=== PATIENT | male | born 1935 | race Caucasian/White ===

== ENCOUNTER → 2016-12-21 | Outpatient (CLI) | payer MEDICARE | LOC: GMAL 17:36 | PROVIDERS: ATTEND Family Medicine | DX: D51.3 Other dietary vitamin B12 deficiency anemia (principal); R53.83 Other fatigue ==

== ENCOUNTER → 2016-12-31 | Outpatient (CLI) | payer MEDICARE | END | disposition home or self-care (01) | LOC: GMAL 10:06 | PROVIDERS: ATTEND Family Medicine | DX: R53.83 Other fatigue (principal) ==

== ENCOUNTER 2017-07-04 07:52 | Emergency (ER) | payer MEDICARE ==
[2017-07-04] MEDS ORDERED: MORPHINE SULFATE INJ 10 MG/ML VIAL IV ONE ×2 (08:04→08:35)
[2017-07-04] MEDS ORDERED: ONDANSETRON INJ 4 MG/2 ML VIAL IV ONE (08:04)
--- NOTE | 2017-07-04 08:13 | ED.PDOC ---
History of Present Illness - General Chief Complaint: Post Op Problems Stated Complaint: surgery on tuesday, pain and falls Time Seen by Provider: 07/04/17 08:03 Source: patient, RN notes reviewed, Vital Signs reviewed, family, EMS Exam Limitations: no limitations - History of Present Illness Initial Comments: Patient comes in via EMS with c/o of R arm pain X 2 days. He had a fistula for dialysis placed 4 days ago. L arm from elbow to forearm is red, swollen and extremely tender. 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 Over the weekend he has had several falls w/o injury but people were grabbing his L arm to help him get up. + low grade fever, 99.5, and chills at home. Timing/Duration: getting worse - over the past 2 days Severity: severe Improving Factors: immobilization Worsening Factors: movement, other - touching Associated Symptoms: fever/chills Allergies/Adverse Reactions: Allergies Azithromycin Allergy (Verified 07/04/17 07:56) Cephalexin [From Keflex] Allergy (Verified 07/04/17 07:56) Ciprofloxacin [From Cipro] Allergy (Verified 07/04/17 07:56) Clarithromycin [From Biaxin] Allergy (Verified 07/04/17 07:56) Doxycycline [From Vibramycin] Allergy (Verified 07/04/17 07:56) Levofloxacin [From Levaquin] Allergy (Verified 07/04/17 07:56) Metronidazole [From Flagyl] Allergy (Verified 07/04/17 07:56) Pantoprazole [From Protonix] Allergy (Verified 07/04/17 07:56) Promethazine [From Phenergan] Allergy (Verified 07/04/17 07:56) Sulfamethoxazole w/Trimethoprim [From Bactrim] Allergy (Verified 07/04/17 07:56) Home Medications: Ambulatory Orders Ferrous Gluconate [Iron] 27 mg PO BID 09/06/14 Amiodarone HCl 200 mg PO DAILY 09/07/14 Simvastatin [Zocor] 40 mg PO BEDTIME 09/07/14 Aspirin [Aspirin Adult Low Dose] 81 mg PO QAM #60 tab 10/27/15 Omeprazole [Prilosec Cap] 20 mg PO ACBK #30 cap 10/27/15 Warfarin Sodium 1 mg PO 07/04/17 Warfarin Sodium 2 mg PO ZACHARY-OTH-DAY 07/04/17 Review of Systems - Review of Systems Constitutional: States: chills, fever EENTM: States: no symptoms reported Respiratory: States: no symptoms reported Cardiology: States: no symptoms reported Gastrointestinal/Abdominal: States: no symptoms reported Musculoskeletal: States: see HPI Skin: States: see HPI Neurological: States: see HPI. Denies: headache All other Systems: No Change from Baseline Past Medical History (General) - Patient Medical History Hx Seizures: No Hx Stroke: No Hx Dementia: No Hx Asthma: No Hx of COPD: No Hx Cardiac Disorders: Yes Hx Congestive Heart Failure: No Hx Pacemaker: No Hx Hypertension: Yes Hx Thyroid Disease: No Hx Diabetes: No Hx Gastroesophageal Reflux: No Hx Renal Disease: Yes Hx Cancer: No Hx of HIV: No Hx Hepatitis C: No Hx MRSA: No - Vaccination History Hx Tetanus, Diphtheria Vaccination: Yes Hx Influenza Vaccination: Yes Hx Pneumococcal Vaccination: Yes Immunizations Up to Date: Yes - Social History Hx Tobacco Use: No Hx Chewing Tobacco Use: No Hx Alcohol Use: No Hx Substance Use: No Hx Substance Use Treatment: No Hx Depression: No Feels Threatened In Home Enviroment: No Feels Threatened In a Relationship: No Hx Physical Abuse: No Hx Emotional Abuse: No Hx Suspected Abuse: No - Activities of Daily Living Hospice Agency (if applicable):: None - Female History Patient is a Female of Child Bearing Age (10 -59 yrs old): No Patient : No Family Medical History - Family History Father Name: Christopher Yang Age (years): 80 Living Status: Age at (years of age): 80 Cause of : Bladder cancer. Hx Family Cancer: Yes - bladder cancer Mother Family History: No Known Name: Dennis Yang Age (years): 88 Living Status: Age at (years of age): 88 Cause of : House fire Hx Family Asthma: No Hx Family Congestive Heart Failure: No Hx Family Hypertension: No Hx Family Stroke: No Hx Cardiac Disease: No Hx Family Diabetes: No Hx Family Cancer: Yes Physical Exam - Physical Exam General Appearance: Alert, Comfortable, No apparent distress, Well Developed, Well Groomed, Well Hydrated, Well Nourished Neck: full range of motion, supple, normal inspection Respiratory: chest non-tender, lungs clear, normal breath sounds, no respiratory distress, no accessory muscle use Cardiovascular/Chest: normal peripheral pulses, regular rate, rhythm, no gallop , no murmur Peripheral Pulses: radial,left: 1+ Extremity: inflammation, slow capillary refill, swelling, other - L arm: Volar aspect from elbow to wrist is erythematou, swollen, tender, warm with bruising from elbow to mid bicep. Can't move arm but moves all fingers and sensation is intact and equal in all. Neurologic: alert, normal mood/affect, oriented x 3 Skin Exam: normal color - except as noted above, warm/dry Lymphatic: no adenopathy - No adenopathy L axilla Progress - Progress Progress: 07/04/17 08:51 Resting comfortably after sonogram and Morphine 10mg IV. Awaiting call back from Dr. Tony Plunkett - surgeon who placed his graft on Tuesday. 07/04/17 09:[address] Griffith, surgeon, who would like patient transferred to [facility]. - Results/Orders Results/Orders: Laboratory Tests 07/04/17 07/04/17 08:20 08:20 WBC 16.7 H RBC 3.91 L Hgb 11.7 L Hct 35.9 L MCV 91.6 MCH 29.9 MCHC 32.7 L RDW 13.0 Plt Count 232 MPV 6.9 L Absolute Neuts (auto) 13.90 H Absolute Lymphs (auto) 1.10 Absolute Monos (auto) 1.50 H Absolute Eos (auto) 0.10 Absolute Basos (auto) 0.10 Neutrophils % 83.2 H Lymphocytes % 6.9 L Monocytes % 8.9 Eosinophils % 0.4 L Basophils % 0.6 Sodium 138 Potassium 4.7 Chloride 106 Carbon Dioxide 17 L Anion Gap 19.7 H BUN 43 H Creatinine 3.76 H BUN/Creatinine Ratio 11.4 Random Glucose 77 Serum Osmolality 285.3 Calcium 8.5 Total Bilirubin 0.9 AST 74 H ALT 17 Alkaline Phosphatase 79 Serum Total Protein 7.4 Albumin 3.3 Globulin 4.1 H Albumin/Globulin Ratio 0.8 L - EKG/XRAY/CT Comments: RUE Doppler: negative for DVT Departure - Departure Clinical Impression: Cellulitis of forearm, left Post-operative infection Qualifiers: Encounter type: initial encounter Qualified Code(s): T81.4XXA - Infection following a procedure, initial encounter Time of Disposition: 09:45 Disposition: Transfer to Hospital Condition: Good Departure Forms: ED Discharge - Pt. Copy, Patient Portal Self Enrollment Referrals: Wesly Wells III, MD [Primary Care Provider] - 1-2 Weeks Home Medications: Ambulatory Orders Ferrous Gluconate [Iron] 27 mg PO BID 09/06/14 Amiodarone HCl 200 mg PO DAILY 09/07/14 Simvastatin [Zocor] 40 mg PO BEDTIME 09/07/14 Aspirin [Aspirin Adult Low Dose] 81 mg PO QAM #60 tab 10/27/15 Omeprazole [Prilosec Cap] 20 mg PO ACBK #30 cap 10/27/15 Warfarin Sodium 1 mg PO 07/04/17 Warfarin Sodium 2 mg PO ZACHARY-OTH-DAY 07/04/17 Transfer to Outside Facility - Transfer Information Accepting Provider:: Dr Dunne Accepting Facility: [facility] Reason for Transfer: specialized care not available - Spoke with Surgeon - Dr Griffith who is covering for Dr. Plunkett who wants patient transferred
[2017-07-04 08:57] VITALS: BP 104/49
--- NOTE | 2017-07-04 09:15 | US ---
EXAM DESCRIPTION: Venous,Upper Extremity LT CLINICAL HISTORY: RUE swelling/pain/erythema s/p fistula placement COMPARISON: None Available. TECHNIQUE: Left upper extremity venous duplex FINDINGS: There is no DVT identified. There is normal color flow observed with good flow augmentation. All deep veins compress normally. IMPRESSION: Negative for DVT Electronically signed by: Chidi Calderón MD 07/04/2017 9:14 AM CDT
[2017-07-04 09:51] VITALS: TEMP 99; O2SAT 96
== END 2017-07-04 10:18 | disposition short-term general hospital (02) ==
LOC: ER 07:52
DX: T82.7XXA Infection and inflammatory reaction due to other cardiac and vascular devices, implants and grafts, initial encounter (principal); L03.114 Cellulitis of left upper limb; Z91.81 History of falling; I10 Essential (primary) hypertension; N28.9 Disorder of kidney and ureter, unspecified; Z88.3 Allergy status to other anti-infective agents; Z88.8 Allergy status to other drugs, medicaments and biological substances
CPT/HCPCS: 36415; 80053; 85025; 87040; 93971; J2270; J2405

== ENCOUNTER → 2017-08-23 | Outpatient (CLI) | payer MEDICARE | END | disposition home or self-care (01) | LOC: BFHH 13:05 | PROVIDERS: ATTEND Family Medicine | DX: I13.2 Hypertensive heart and chronic kidney disease with heart failure and with stage 5 chronic kidney disease, or end stage renal disease (principal); I50.9 Heart failure, unspecified; N18.5 Chronic kidney disease, stage 5; D64.9 Anemia, unspecified; Z79.01 Long term (current) use of anticoagulants; I48.0 Paroxysmal atrial fibrillation; E03.9 Hypothyroidism, unspecified ==

== ENCOUNTER → 2017-10-04 | Outpatient (CLI) | payer MEDICARE | END | disposition home or self-care (01) | LOC: BFHH 08:59 | PROVIDERS: ATTEND Family Medicine | DX: E03.9 Hypothyroidism, unspecified (principal) ==

== ENCOUNTER 2017-11-14 19:21 | Emergency (ER) | payer MEDICARE ==
--- NOTE | 2017-11-14 20:49 | ED.PDOC ---
History of Present Illness - General Chief Complaint: General Stated Complaint: cough, congestion, not eating or drinking x 4 days Time Seen by Provider: 11/14/17 20:39 Source: patient, EMS notes reviewed - History of Present Illness Initial Comments: SOB, NON PRODUCTIVE COUGH, VOMITING, WEAKNESS, MALAISE X ONE WEEK. HX OF CHRONIC KIDNEY INJURY. Timing/Duration: 1 week Severity: moderate Improving Factors: nothing Worsening Factors: nothing Associated Symptoms: cough, malaise Allergies/Adverse Reactions: Allergies Amiodarone Allergy (Verified 11/14/17 19:55) Azithromycin Allergy (Verified 11/14/17 19:55) Cephalexin [From Keflex] Allergy (Verified 11/14/17 19:55) Ciprofloxacin [From Cipro] Allergy (Verified 11/14/17 19:55) Clarithromycin [From Biaxin] Allergy (Verified 11/14/17 19:55) Doxycycline [From Vibramycin] Allergy (Verified 11/14/17 19:55) Levofloxacin [From Levaquin] Allergy (Verified 11/14/17 19:55) Metronidazole [From Flagyl] Allergy (Verified 11/14/17 19:55) Omeprazole [From Prilosec] Allergy (Verified 11/14/17 19:55) Pantoprazole [From Protonix] Allergy (Verified 11/14/17 19:55) Promethazine [From Phenergan] Allergy (Verified 07/04/17 07:56) Sulfamethoxazole w/Trimethoprim [From Bactrim] Allergy (Verified 07/04/17 07:56) Home Medications: Ambulatory Orders Ferrous Gluconate [Iron] 27 mg PO BID 09/06/14 Amiodarone HCl 200 mg PO DAILY 09/07/14 Simvastatin [Zocor] 40 mg PO BEDTIME 09/07/14 Aspirin [Aspirin Adult Low Dose] 81 mg PO QAM #60 tab 10/27/15 Omeprazole [Prilosec Cap] 20 mg PO ACBK #30 cap 10/27/15 Warfarin Sodium 1 mg PO 07/04/17 Warfarin Sodium 2 mg PO ZACHARY-OTH-DAY 07/04/17 Amoxicillin & Pot Clavulanate [Augmentin Tab] 875 mg PO BID #20 tab 11/14/17 Review of Systems - Review of Systems Constitutional: States: weakness EENTM: States: no symptoms reported Respiratory: States: cough Cardiology: States: no symptoms reported Gastrointestinal/Abdominal: States: nausea Genitourinary: States: no symptoms reported Musculoskeletal: States: muscle pain Skin: States: no symptoms reported Neurological: States: no symptoms reported Endocrine: States: no symptoms reported Hematologic/Lymphatic: States: no symptoms reported All other Systems: Reviewed and Negative Past Medical History (General) - Patient Medical History Hx Seizures: No Hx Stroke: No Hx Dementia: No Hx Asthma: No Hx of COPD: No Hx Cardiac Disorders: Yes - A-Fib Hx Congestive Heart Failure: No Hx Pacemaker: No Hx Hypertension: No Hx Thyroid Disease: Yes Hx Diabetes: No Hx Gastroesophageal Reflux: Yes Hx Renal Disease: Yes - Kidney failure Hx Cancer: Yes - Prostate Hx of HIV: No Hx Hepatitis C: No Hx MRSA: No Surgical History: other - Vaccination History Hx Tetanus, Diphtheria Vaccination: No Hx Influenza Vaccination: Yes Hx Pneumococcal Vaccination: Yes - Social History Hx Tobacco Use: No Hx Chewing Tobacco Use: No Hx Alcohol Use: No Hx Substance Use: No Hx Substance Use Treatment: No Hx Depression: No Hx Physical Abuse: No Hx Emotional Abuse: No Hx Suspected Abuse: No - Female History Patient : No Family Medical History - Family History Father Name: Christopher Yang Age (years): 80 Living Status: Age at (years of age): 80 Cause of : Bladder cancer. Hx Family Cancer: Yes - bladder cancer Mother Family History: No Known Name: Dennis Yang Age (years): 88 Living Status: Age at (years of age): 88 Cause of : House fire Hx Family Asthma: No Hx Family Congestive Heart Failure: No Hx Family Hypertension: No Hx Family Stroke: No Hx Cardiac Disease: No Hx Family Diabetes: No Hx Family Cancer: Yes Physical Exam - Physical Exam General Appearance: Alert, Anxious, No apparent distress Eye Exam: bilateral normal Ears, Nose, Throat: hearing grossly normal, normal ENT inspection, normal pharynx Neck: full range of motion, supple, normal inspection Respiratory: chest non-tender, lungs clear, normal breath sounds, no respiratory distress, no accessory muscle use Cardiovascular/Chest: normal peripheral pulses, regular rate, rhythm, no edema, no gallop, no JVD, no murmur Peripheral Pulses: radial,right: 2+, radial,left: 2+ Gastrointestinal/Abdominal: non tender, soft, no organomegaly, no pulsatile mass Rectal Exam: deferred Extremity: normal range of motion, non-tender, normal inspection Neurologic: oriented x 3 Skin Exam: normal color, warm/dry Lymphatic: no adenopathy Progress - Progress Progress: 11/14/17 23:05 LABORATORY IS REPORTED: CBC: WBC OF 7.6, 69% NEUTROPHILS, CMP: CREAT OF 3.4, BUN 51AST OF 386, ALT OF 24. CXR IS NEGATIVE FOR ACUTE PROCESS, INFLUENZA SCREEN NEGATIVE. Departure - Departure Clinical Impression: Hyperkalemia, diminished renal excretion Acute bronchitis Qualifiers: Bronchitis organism: other organism Qualified Code(s): J20.8 - Acute bronchitis due to other specified organisms Renal failure Qualifiers: Renal failure chronicity: chronic Chronic kidney disease stage: stage 3 ( moderate) Qualified Code(s): N18.3 - Chronic kidney disease, stage 3 (moderate) Time of Disposition: 23:10 Disposition: Discharge to Home or Self Care Condition: Fair Departure Forms: ED Discharge - Pt. Copy, Patient Portal Self Enrollment Diet: resume usual diet Activity: increase activity as tolerated Referrals: Wesly Wells III, MD [Primary Care Provider] - 1-2 Weeks Prescriptions: Amoxicillin & Pot Clavulanate [Augmentin Tab] 875 mg PO BID #20 tab Home Medications: Ambulatory Orders Ferrous Gluconate [Iron] 27 mg PO BID 09/06/14 Amiodarone HCl 200 mg PO DAILY 09/07/14 Simvastatin [Zocor] 40 mg PO BEDTIME 09/07/14 Aspirin [Aspirin Adult Low Dose] 81 mg PO QAM #60 tab 10/27/15 Omeprazole [Prilosec Cap] 20 mg PO ACBK #30 cap 10/27/15 Warfarin Sodium 1 mg PO 07/04/17 Warfarin Sodium 2 mg PO ZACHARY-OTH-DAY 07/04/17 Amoxicillin & Pot Clavulanate [Augmentin Tab] 875 mg PO BID #20 tab 11/14/17
--- NOTE | 2017-11-14 21:44 | RAD ---
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 No pneumothorax or pleural effusion. Aortic atherosclerosis. Normal cardiac silhouette. Impression: No focal airspace disease. Electronically signed by: Gibson Castillo MD 11/14/2017 9:43 PM SOLE CONFORMING MACHINE OPERATOR
[2017-11-14] MEDS ORDERED: SODIUM CHLORIDE 0.9% 500ML 500 ML IVS ONE (21:58)
[2017-11-14] MEDS ORDERED: AMOXICILLIN & POT CLAVULANATE 875 MG TAB PO ONE (23:07)
[2017-11-14] MEDS ORDERED: SOD POLYSTYRENE SULFONATE 15 GM/60 ML BTTL PO ONE (23:07)
[2017-11-14 23:53] VITALS: BP 158/67; TEMP 97.3; O2SAT 91
== END 2017-11-14 23:53 | disposition home or self-care (01) ==
LOC: ER 19:21
DX: J20.8 Acute bronchitis due to other specified organisms (principal); N18.3 Chronic kidney disease, stage 3 (moderate); I48.91 Unspecified atrial fibrillation; E87.5 Hyperkalemia; E07.9 Disorder of thyroid, unspecified; Z85.46 Personal history of malignant neoplasm of prostate; Z79.01 Long term (current) use of anticoagulants; Z79.82 Long term (current) use of aspirin
CPT/HCPCS: 36415; 71010; 80053; 81001; 85025; 87502; J7040

== ENCOUNTER → 2017-11-23 | Outpatient (CLI) | payer MEDICARE ==
--- NOTE | 2017-11-24 22:21 | CT ---
EXAM DESCRIPTION: Abdomen/Pelvis w/o Contrast: Computed tomography. CLINICAL HISTORY: CHRONIC KIDNEY DISEASE COMPARISON: None. TECHNIQUE: Spiral-axial scans at 5.0 mm intervals through the abdomen and pelvis. Coronal and sagittal 2.0mm reconstructions. No IV or oral contrast. Total Exam DLP: 5.9, 0.28 mGy-cm. This exam was performed according to our departmental CT dose-optimization program which includes automated exposure control, adjustment of the mA and/or kV according to patient size and/or use of iterative reconstruction technique; to reduce radiation dose to as low as reasonably achievable (ALARA). FINDINGS: Kidneys and Ureters: Long axis of the right kidney is 7.2 cm. Long axis of the left kidney is 9.5 cm. Bilateral cortical thinning. Multiple large well-defined rounded and oval masses on both kidneys with thin pappas and Hounsfield density less than +15 Hounsfield units. The cysts do not contain calcifications. No renal calcification or radiodense renal or ureteral stones. No hydronephrosis bilaterally or perinephric fluid. No periureteral edema. Pelvic Organs: Mass effect on the urinary bladder by rectum distended by gas. No radiodense stones in the bladder. Surgical clips in the pelvis. Prostate is not well seen with surgical clips in the region of the prostate. No fluid in the anterior peritoneal reflection and no pelvic mass. Lung and pleura bases: Atelectasis in the bilateral bases more right than left. Minimal pleural thickening. Bilateral pleural effusions seen on the prior study have resolved. Liver, spleen, stomach, and adrenal glands: Unremarkable. Pancreas, Gallbladder, Ducts: Gallbladder visualized. Surgical clips in the epigastrium and gastroesophageal region. Aorta: Moderate atherosclerotic calcification more distally with areas of ectasia below the renal arteries. Small Bowel: Normal caliber with fluid and minimal gas. Terminal Ileum/Cecum: Normal caliber of the TI. Cecum unremarkable. Appendix not seen. . Colon: Normal density of the surrounding fat. Diverticula descending and transverse descending and sigmoid:. No surrounding fatty stranding and no mucosal thickening. Minimal redundancy of the sigmoid colon Mesentery: No free air or free fluid. No stranding or fascial thickening. Spine and Bony Pelvis: Multiple levels of spondylosis involving the entire lumbar spine in the included segments of the thoracic spine. Thoracolumbar levoscoliosis. Marked bilateral hip arthrosis more left than right with minimal worsening since the prior study. Abdominal Wall/Back Soft Tissues: Fatty inguinal hernia on the left not containing bowel. IMPRESSION: 1. Bilateral kidneys show cortical thinning with the right kidney smaller than the left. Multiple cysts bilaterally. No calcification in the cyst renal parenchyma and no radiodense stones in the kidneys or ureters bilaterally. Stable since the prior study. 2. Partial versus complete removal of the prostate gland stable since the prior study. Surgery to the gastroesophageal region also seen on the prior study. 3. Resolution of bilateral pleural effusions since the prior study. Minimal atelectasis right base more than left. 4. Diverticulosis again involving most of the colon with no evidence of complications. Stable small left inguinal hernia not containing bowel. 5. No pelvic or abdominal mass free fluid or free air.. Electronically signed by: Pedro Mcghee MD 11/24/2017 10:20 PM [facility]
== END | disposition home or self-care (01) ==
LOC: LAB.O 11:08
PROVIDERS: ATTEND Internal Medicine Nephrology
DX: N18.4 Chronic kidney disease, stage 4 (severe) (principal)

== ENCOUNTER → 2017-11-25 | Outpatient (CLI) | payer MEDICARE | END | disposition home or self-care (01) | LOC: LAB.O 11:18 | PROVIDERS: ATTEND Internal Medicine Nephrology | DX: N18.4 Chronic kidney disease, stage 4 (severe) (principal) ==

== ENCOUNTER → 2017-12-05 | Outpatient (CLI) | payer MEDICARE | END | disposition home or self-care (01) | LOC: BFHH 15:17 | PROVIDERS: ATTEND Family Medicine | DX: R30.0 Dysuria (principal) ==

== ENCOUNTER 2017-12-30 12:07 | Observation (INO) | payer MEDICARE ==
[2017-12-30] MEDS ORDERED: ONDANSETRON INJ 4 MG/2 ML VIAL IV ONE (13:01)
[2017-12-30] MEDS ORDERED: SODIUM CHLORIDE 0.9% 1000ML 1,000 ML IVS ONE (13:01)
--- NOTE | 2017-12-30 13:04 | ED.PDOC ---
History of Present Illness - General Chief Complaint: General Stated Complaint: Weakness, poor intake Time Seen by Provider: 12/30/17 12:54 Source: patient, family - History of Present Illness Initial Comments: VOMITING FOR 10 DAYS INTERMITTENTLY AND A NON PRODUCTIVE COUGH. THE PATIENT HAS A SUBJECTIVE FEVER AND MALAISE. HE WAS IN THE ED LAST MONTH WITH SIMILAR PROBLEMS. Timing/Duration: 1 week, getting worse Severity: moderate Improving Factors: nothing Worsening Factors: nothing Associated Symptoms: cough, fever/chills, weakness Allergies/Adverse Reactions: Allergies Amiodarone Allergy (Verified 11/14/17 19:55) Azithromycin Allergy (Verified 11/14/17 19:55) Cephalexin [From Keflex] Allergy (Verified 11/14/17 19:55) Ciprofloxacin [From Cipro] Allergy (Verified 11/14/17 19:55) Clarithromycin [From Biaxin] Allergy (Verified 11/14/17 19:55) Doxycycline [From Vibramycin] Allergy (Verified 11/14/17 19:55) Levofloxacin [From Levaquin] Allergy (Verified 11/14/17 19:55) Metronidazole [From Flagyl] Allergy (Verified 11/14/17 19:55) Omeprazole [From Prilosec] Allergy (Verified 11/14/17 19:55) Pantoprazole [From Protonix] Allergy (Verified 11/14/17 19:55) Promethazine [From Phenergan] Allergy (Verified 07/04/17 07:56) Sulfamethoxazole w/Trimethoprim [From Bactrim] Allergy (Verified 07/04/17 07:56) Home Medications: Ambulatory Orders Ferrous Gluconate [Iron] 27 mg PO BID 09/06/14 Amiodarone HCl 200 mg PO DAILY 09/07/14 Simvastatin [Zocor] 40 mg PO BEDTIME 09/07/14 Aspirin [Aspirin Adult Low Dose] 81 mg PO QAM #60 tab 10/27/15 Omeprazole [Prilosec Cap] 20 mg PO ACBK #30 cap 10/27/15 Warfarin Sodium 1 mg PO 07/04/17 Warfarin Sodium 2 mg PO ZACHARY-OTH-DAY 07/04/17 Amoxicillin & Pot Clavulanate [Augmentin Tab] 875 mg PO BID #20 tab 11/14/17 Review of Systems - Review of Systems Constitutional: States: fever EENTM: States: no symptoms reported Respiratory: States: cough Cardiology: States: no symptoms reported Gastrointestinal/Abdominal: States: nausea, vomiting Genitourinary: States: no symptoms reported Musculoskeletal: States: no symptoms reported Skin: States: no symptoms reported Neurological: States: no symptoms reported Endocrine: States: no symptoms reported Hematologic/Lymphatic: States: no symptoms reported Past Medical History (General) - Patient Medical History Hx Seizures: No Hx Stroke: No Hx Dementia: No Hx Asthma: No Hx of COPD: No Hx Cardiac Disorders: Yes - A-Fib Hx Congestive Heart Failure: No Hx Pacemaker: No Hx Hypertension: No Hx Thyroid Disease: Yes Hx Diabetes: No Hx Gastroesophageal Reflux: Yes - Hx peptic ulcer Hx Renal Disease: Yes - Kidney failure Hx Cancer: Yes - Prostate Hx of HIV: No Hx Hepatitis C: No Hx MRSA: No Surgical History: other - Vaccination History Hx Tetanus, Diphtheria Vaccination: No Hx Influenza Vaccination: Yes - 2016 Hx Pneumococcal Vaccination: Yes - Social History Hx Tobacco Use: Yes - Quit around 1965 Hx Chewing Tobacco Use: No Hx Alcohol Use: No Hx Substance Use: No Hx Substance Use Treatment: No Hx Depression: No Hx Physical Abuse: No Hx Emotional Abuse: No Hx Suspected Abuse: No - Female History Patient : No Family Medical History - Family History Father Name: Christopher Yang Age (years): 80 Living Status: Age at (years of age): 80 Cause of : Bladder cancer. Hx Family Cancer: Yes - bladder cancer Mother Family History: No Known Name: Dennis Yang Age (years): 88 Living Status: Age at (years of age): 88 Cause of : House fire Hx Family Asthma: No Hx Family Congestive Heart Failure: No Hx Family Hypertension: No Hx Family Stroke: No Hx Cardiac Disease: No Hx Family Diabetes: No Hx Family Cancer: Yes Physical Exam - Physical Exam General Appearance: Alert, No apparent distress Eye Exam: bilateral normal Ears, Nose, Throat: hearing grossly normal, other - ORAL MUCOSA IS DRY Neck: non-tender, full range of motion Respiratory: chest non-tender, lungs clear, normal breath sounds, no respiratory distress, no accessory muscle use Cardiovascular/Chest: normal peripheral pulses, regular rate, rhythm, no edema, no gallop, no JVD, no murmur Peripheral Pulses: radial,right: 2+, radial,left: 2+ Gastrointestinal/Abdominal: normal bowel sounds, non tender, soft, no organomegaly, no pulsatile mass Rectal Exam: deferred Back Exam: normal inspection Extremity: normal range of motion, non-tender, normal inspection Neurologic: alert, oriented x 3 Skin Exam: normal color Progress - Results/Orders Results/Orders: LAB IS REPORTED WBC IS NORMAL, HB OF 11.6, INR OF 1.7, CREATININE OF 2.98/51. CXR NO ACUTE PROCESS. CASE DISCUSSED WITH HOSPITALIST Departure - Departure Clinical Impression: [id number] kidney injury Qualifiers: Acute renal failure type: unspecified Chronic kidney disease stage: stage 2 ( mild) Qualified Code(s): N17.9 - Acute kidney failure, unspecified; N18.2 - Chronic kidney disease, stage 2 (mild) Time of Disposition: 16:22 Disposition: Admit Patient Departure Forms: ED Discharge - Pt. Copy, Patient Portal Self Enrollment Referrals: Wesly Wells III, MD [Primary Care Provider] - 1-2 Weeks Home Medications: Ambulatory Orders Ferrous Gluconate [Iron] 27 mg PO BID 09/06/14 Amiodarone HCl 200 mg PO DAILY 09/07/14 Simvastatin [Zocor] 40 mg PO BEDTIME 09/07/14 Aspirin [Aspirin Adult Low Dose] 81 mg PO QAM #60 tab 10/27/15 Omeprazole [Prilosec Cap] 20 mg PO ACBK #30 cap 10/27/15 Warfarin Sodium 1 mg PO 07/04/17 Warfarin Sodium 2 mg PO ZACHARY-OTH-DAY 07/04/17 Amoxicillin & Pot Clavulanate [Augmentin Tab] 875 mg PO BID #20 tab 11/14/17 Decision To Admit - Decistion To Admit Decision to Admit Reason: Admit from ER Decision to Admit Date: 12/30/17 Decision to Admit Time: 16:21
--- NOTE | 2017-12-30 13:33 | RAD ---
EXAM DESCRIPTION: Chest,1 View CLINICAL HISTORY: Fever and shortness of breath COMPARISON: November 14, 2017 Findings: Single portable frontal view of the chest. Cardiac silhouette and pulmonary vascularity are within normal limits. Mild calcific atherosclerosis and tortuosity of the thoracic aorta. Lungs are clear without focal consolidative infiltrates. Costophrenic angles are sharp. No pneumothorax. Surgical clips over the mid upper abdomen. IMPRESSION: No radiographic evidence for acute cardiopulmonary process. Electronically signed by: Wesly Page MD 12/30/2017 1:32 PM PROFESSIONAL ARCHITECT
--- NOTE | 2017-12-30 17:29 | HP ---
SUPERVISING PHYSICIAN: Gibson Kemp M.D. CHIEF COMPLAINT: Weakness, nausea and vomiting. HISTORY OF PRESENT ILLNESS: This is an 82 year-old male patient who came to the Emergency Room today due to nausea with intermittent vomiting for 10 days. He was seen in his primary care physician, Dr. Wesly Wells' office yesterday for acute bronchitis and was given Amoxicillin. He has chronic nausea and vomiting due to gastroesophageal reflux disease and his renal failure, but his vomiting has been worse over the last 10 days. He has also had fatigue but no fever. In the Emergency Room, his WBCs were normal at 6.2 with hemoglobin 11.6 and hematocrit 35.5. He is on Coumadin for atrial fibrillation and his INR was subtherapeutic today at 1.76. Sodium 139, potassium 4.9, chloride 114, carbon dioxide 15, BUN 51, creatinine 2.98. His baseline creatinine is about 3. Calcium 8.2. AST 177, ALT 156, alkaline phosphatase 74, serum total protein 6.5 , albumin 2.9. Urinalysis was basically within normal limits. Chest x-ray was done and per radiology interpretation shows no radiographic evidence of acute cardiopulmonary processes. He was given some Zofran and 1 liter of fluid in the Emergency Room and I was called for admission. PAST MEDICAL HISTORY: 1. Atrial fibrillation. 2. Chronic kidney disease stage 4. 3. Diverticulitis. 4. Gastroesophageal reflux disease. 5. Osteoarthritis. 6. Iron deficiency anemia. 7. Chronic nausea from renal failure. PAST SURGICAL HISTORY: 1. Appendectomy. 2. Hernia repair times 2. 3. Prostatectomy. 4. Throat surgery. 5. Left femur surgery. 6. Hemodialysis shunt to the left arm. HOME MEDICATIONS: Per the EMR and awaiting verification. ALLERGIES: AZITHROMYCIN, BIAXIN, CEPHALOSPORINS, CIPRO, FLAGYL, PRILOSEC, PROTONIX, SULFA, VIBRAMYCIN, TRICOR. SOCIAL HISTORY: He is retired. He lives at [place]. He is . He has 2 children. He has a previous history of cigarette smoking but he quit in 1985. There is no history of ETOH or illicit drug use. REVIEW OF SYSTEMS: Positive for fatigue. Negative for weight changes or fever. RESPIRATORY: Positive for cough. Negative for dyspnea or wheezing. CARDIOVASCULAR: Negative for chest pain, palpitations or tachycardia. MUSCULOSKELETAL: Positive for left arm pain that is chronic in nature. Negative for arthralgias or myalgias. GASTROINTESTINAL: As per History of Present Illness. GENITOURINARY: Negative for dysuria, hematuria or polyuria. SKIN: Negative for rashes or lesions. NEUROLOGIC: Negative for seizures, headaches or dizziness. PHYSICAL EXAMINATION: VITAL SIGNS: He is afebrile, heart rate 104, blood pressure 119/71, respiratory rate 20, O2 sat is 97% on room air. GENERAL: This is an 82 year-old male patient who is sitting in his hospital bed. He is eating his supper. He is in no acute distress. HEENT: Normocephalic and atraumatic. Pupils are equal and reactive. Oropharynx is clear. Oral mucous membranes are dry. NECK: Supple without mass. RESPIRATORY: Essentially clear to auscultation bilaterally, although he does have a few scattered rhonchi in the apices. CHEST: There is equal rise and fall of the chest with inspiration and expiration. CARDIOVASCULAR: Regular rate and rhythm. GASTROINTESTINAL: Abdomen is soft, nondistended, non-tender. Bowel sounds are positive. EXTREMITIES: Trace of pedal edema bilaterally. No cyanosis or clubbing. NEUROLOGIC: He is awake, alert and oriented times three. LABORATORY: Labs and films are as per the History of Present Illness. ASSESSMENT: 1. Dehydration with nausea and vomiting. He does have chronic signs due to his renal failure, but may be exacerbated due to his recent poor intake as well as his recent upper respiratory infection. 2. Acute bronchitis, seen yesterday by his primary care physician, Dr. Wells, on Amoxicillin. 3. Chronic renal failure with a baseline creatinine of [address] Lopes. 4. History of atrial fibrillation on Coumadin and Amiodarone with a subtherapeutic INR. He did not take his Coumadin today due to his nausea. 5. Gastroesophageal reflux disease. PLAN: We will place the patient in Observation. I spoke with both Dr. Wells and Dr. Lopes about his renal issues. He has not been on dialysis as yet but Dr. Lopes would like him to have some bicarbonate in his IV fluids. I will give those gently overnight. I have restarted his Amoxicillin as well as his home medications. I have also given him an extra dose of Coumadin tonight and will recheck his INR in the morning as well as his additional lab. I have also ordered bronchial hygiene and Mucinex. We will monitor the patient closely and follow as needed. Dr. Kemp is the collaborating physician available for consultation. #[id number] [facility]
[2017-12-30] MEDS ORDERED: IV SET AND CAP CHANGE INJ INJ SCH (19:00)
[2017-12-30] MEDS ORDERED: SODIUM CHLORIDE 0.9% (FLUSH) 10 ML SYG IV PRN (19:00)
[2017-12-30] MEDS ORDERED: SODIUM BICARBONATE SYRINGE 75 MEQ in DEXTROSE 5% 1000ML 1,000 ML IV PRN (19:08)
[2017-12-30] MEDS ORDERED: WARFARIN SODIUM 2 MG TAB PO ONE (19:12)
[2017-12-30] MEDS ORDERED: CALCITRIOL 0.25 MCG CAP PO SCH (19:30)
[2017-12-30] MEDS ORDERED: WARFARIN SODIUM 2 MG TAB PO SCH (19:30)
[2017-12-30] MEDS ORDERED: DEXTROSE 5% 1000ML 1,000 ML IVS ONE (20:02)
[2017-12-30] MEDS ORDERED: SODIUM BICARBONATE VIAL 50 MEQ/50 ML VIAL ONE (20:03)
[2017-12-30] MEDS: guaiFENesin ER TAB 600 MG TAB PO SCH (20:12)
[2017-12-30] MEDS: AMOXICILLIN 500 MG CAP PO SCH (21:30)
[2017-12-31] MEDS: AMOXICILLIN 500 MG CAP PO SCH ×3 (06:08→21:43)
[2017-12-31] MEDS ORDERED: SODIUM BICARBONATE VIAL 75 MEQ in DEXTROSE 5% 1000ML 1,000 ML IV PRN ×2 (08:00→09:37)
[2017-12-31] MEDS: guaiFENesin ER TAB 600 MG TAB PO SCH ×2 (08:06→20:41)
[2017-12-31] MEDS: FAMOTIDINE 20 MG TAB PO SCH (08:06)
[2017-12-31] MEDS: AMIODARONE HCL 200 MG TAB PO SCH (08:06)
[2017-12-31] MEDS: SIMVASTATIN 20 MG TAB PO SCH (08:07)
[2017-12-31] MEDS ORDERED: LIOTHYRONINE SODIUM 25 MCG PO SCH (09:00)
[2017-12-31] MEDS ORDERED: WARFARIN SODIUM 1 MG TAB PO SCH (12:00)
[2017-12-31] MEDS ORDERED: DEXTROSE 5% 1000ML 0 ML IVS ONE (14:03)
[2017-12-31] MEDS ORDERED: SODIUM BICARBONATE VIAL 50 MEQ/50 ML VIAL ONE ×2 (14:04→14:05)
[2017-12-31] MEDS ORDERED: DEXTROSE 5% 1000ML 1,000 ML IVS ONE (14:05)
--- NOTE | 2017-12-31 15:43 | PN ---
DATE: 12/31/17 SUPERVISING PHYSICIAN: Gibson Kemp M.D. SUBJECTIVE: The patient is asleep, lying in his hospital bed. He awakens easily. Has no complaints of nausea, vomiting, chest pain or shortness of breath. He feels much better, but does not feel much like eating. OBJECTIVE: VITAL SIGNS: He is afebrile, heart rate 94, blood pressure 129/78, respiratory rate 18, O2 sat 96% on room air. RESPIRATORY: Essentially clear to auscultation bilaterally. CARDIAC: Regular rate, irregular rhythm. GASTROINTESTINAL: Abdomen is soft, nondistended, non-tender. Bowel sounds are positive. NEUROLOGIC: He is awake, alert and oriented times three. LABORATORY: White count 6, hemoglobin 10.2, hematocrit 30.5. INR is therapeutic at 2.07. Sodium 141, potassium 3.9, chloride 117, carbon dioxide 17 improved from 15 from yesterday. BUN 48, creatinine 2.88, glucose 106, calcium 8. All other labs and films have been reviewed via the EMR. ASSESSMENT: 1. Dehydration with nausea and vomiting that has mostly resolved. He does have chronic nausea due to his renal failure, but may be exacerbated due to his recent poor intake as well as his recent upper respiratory infection. 2. Chronic renal failure with a baseline creatinine of [address] Lopes. 3. Acute bronchitis, seen on day prior to admission by his primary care physician, Dr. Wells, on Amoxicillin. 4. History of atrial fibrillation on Coumadin and Amiodarone, presently as a therapeutic INR. We will continue his Coumadin at his normal dosing. 5. Gastroesophageal reflux disease. PLAN: We will continue present supportive care. I will give him some D5W with bicarb overnight and hopefully his CO2 will improve as well as his BUN. I will repeat his labs and his INR in the morning. If he continues to improve, we will plan on discharge tomorrow with close followup with Dr. Wells. We will monitor the patient closely and follow as needed. Dr. Kemp is the collaborating physician available for consultation. #[id number] [facility]
[2018-01-01] MEDS: AMOXICILLIN 500 MG CAP PO SCH (06:12)
[2018-01-01] MEDS ORDERED: LIOTHYRONINE SODIUM 25 MCG PO SCH (06:30)
[2018-01-01] MEDS: FAMOTIDINE 20 MG TAB PO SCH (09:23)
[2018-01-01] MEDS: AMIODARONE HCL 200 MG TAB PO SCH (09:23)
[2018-01-01] MEDS: guaiFENesin ER TAB 600 MG TAB PO SCH (09:23)
[2018-01-01] MEDS: SIMVASTATIN 20 MG TAB PO SCH (09:24)
[2018-01-01 10:07] VITALS: BP 138/76; TEMP 98.2; O2SAT 95
--- NOTE | 2018-01-01 20:30 | DS ---
SUPERVISING PHYSICIAN: Gibson Kemp M.D. DISCHARGE DIAGNOSIS: 1. Dehydration with nausea and vomiting that has mostly resolved. He does have chronic nausea due to his renal failure, but it may have been exacerbated due to his recent poor intake as well as his recent upper respiratory infection. 2. Chronic renal failure with a baseline creatinine of [address] Lopes. 3. Acute bronchitis seen on day prior to admission by his primary care physician, Dr. Wells put on Amoxicillin. 4. History of atrial fibrillation on Coumadin and Amiodarone. He initially came in with a subtherapeutic INR. His INR is therapeutic today and will continue his present normal Coumadin dosing. 5. Gastroesophageal reflux disease. HISTORY OF PRESENT ILLNESS: This is an 82 year-old male patient who presented to the Emergency Room on the day of admission due to nausea with intermittent vomiting for 10 days. He had been seen in his primary care physician's office, Dr. Wesly Wells, for acute bronchitis and was given Amoxicillin. He does have chronic nausea and vomiting due to gastroesophageal reflux disease and his renal failure, but his vomiting had worsened over the last 10 days. He was unable to keep his medications down and also subsequently had fatigue, but there was no fever reported. In the Emergency Room, his WBCs were normal at 6.2 with hemoglobin 11.6 and hematocrit 35.5. He is on Coumadin for atrial fibrillation. His INR was subtherapeutic on admission at 1.76 but he had been unable to take his Coumadin that day. Sodium was 139, potassium 4.9, chloride 114, carbon dioxide 15, BUN 51, creatinine 2.98. Baseline creatinine is about 3. Calcium 8.2, AST 177, ALT 156, alkaline phosphatase 74. Urinalysis was basically within normal limits. Chest x-ray was down and showed no radiographic evidence of acute cardiopulmonary processes. He was given some Zofran and a liter of fluids in the Emergency Room and I was called for admission. HOSPITAL COURSE: The patient was placed in Observation in the hospital. Due to his very low CO2 as well as his renal failure, he was given some D5W with 1.5 amps of bicarb. His CO2 improved to 19 today. His BUN is also 36 and his creatinine is 2.52. He was continued on his Amoxicillin and Mucinex was added for his cough. His dehydration has resolved as well as his nausea and vomiting , and he will be discharged home today in stable condition. DISCHARGE PLAN: The patient will be discharged home in stable condition. He is to resume his previous diet and increase his activity as tolerated. He does have a followup appointment with Dr. Wells on 01/04/18 at 2:15 PM. He is to continue on his previous medications, including his Amoxicillin. I have given him a prescription for 10 days additionally of Mucinex. He is to return to the hospital or followup with Dr. Wells for any problems or complications. DISCHARGE MEDICATIONS: 1. Warfarin. 2. Liothyronine. 3. Simvastatin. 4. Methylcobalamin. 5. Ferrous gluconate. 6. Pepcid. 7. Calcitrol. 8. Amiodarone. 9. Guaifenesin. 10. Amoxicillin. Dr. Kemp is the collaborating physician available for consultation. #[id number] [facility]
[2018-01-02] MEDS ORDERED: CALCITRIOL 0.25 MCG CAP PO SCH (09:00)
[2018-01-02] MEDS ORDERED: WARFARIN SODIUM 2 MG TAB PO SCH (12:00)
== END 2018-01-01 10:35 ==
LOC: ER 12:07 → MS 17:28
PROVIDERS: ADMIT Nurse Practitioner Acute Care; ATTEND Nurse Practitioner Acute Care
DX: E86.0 Dehydration (principal); N18.4 Chronic kidney disease, stage 4 (severe); J20.9 Acute bronchitis, unspecified; I48.91 Unspecified atrial fibrillation; K21.9 Gastro-esophageal reflux disease without esophagitis; R09.02 Hypoxemia; M19.90 Unspecified osteoarthritis, unspecified site; Z79.01 Long term (current) use of anticoagulants; Z79.82 Long term (current) use of aspirin; Z79.899 Other long term (current) drug therapy; Z88.2 Allergy status to sulfonamides; Z88.3 Allergy status to other anti-infective agents; Z88.1 Allergy status to other antibiotic agents; Z88.8 Allergy status to other drugs, medicaments and biological substances; Z87.891 Personal history of nicotine dependence
CPT/HCPCS: 36415 ×6; 71045; 80048; 80053 ×2; 81001; 83735 ×2; 85025 ×3; 85610 ×3; 94760 ×10; 96361; 96374; 96375; 96376; 99284; G0378; G0463; J2405; J7030; J7060 ×2

== ENCOUNTER → 2018-01-09 | Outpatient (CLI) | payer MEDICARE | LOC: BFHH 10:31 | PROVIDERS: ATTEND Family Medicine | DX: I12.9 Hypertensive chronic kidney disease with stage 1 through stage 4 chronic kidney disease, or unspecified chronic kidney disease (principal); N18.4 Chronic kidney disease, stage 4 (severe); D63.1 Anemia in chronic kidney disease; E78.2 Mixed hyperlipidemia; E03.9 Hypothyroidism, unspecified; I48.91 Unspecified atrial fibrillation; E53.8 Deficiency of other specified B group vitamins; E55.9 Vitamin D deficiency, unspecified; Z85.46 Personal history of malignant neoplasm of prostate ==

== ENCOUNTER 2018-03-16 05:44 | Inpatient (IN) | payer MEDICARE ==
[2018-03-16] MEDS ORDERED: MORPHINE SULFATE INJ 10 MG/ML VIAL IV ONE ×3 (05:57→10:25)
--- NOTE | 2018-03-16 05:57 | ED.PDOC ---
History of Present Illness - General Source: patient, RN notes reviewed, EMS notes reviewed Additional Information: 82 YEAR OLD WHITE MALE HERE FOR EVALUATION OF CHEST PAIN IN THE ANTERIOR CENTRAL CHEST CONSTANT IN NATURE ASSOCIATED WITH INCREASE ON DEEP BREATHING NO RADIATION NO FEVER CHILLS NO DIAPHORESIS HE HAS KNOWN HISTORY OF ATRIAL FIB AND PROSTATE DISEASE NO PRODUCTIVE COUGH FEVER REPORTED - History of Present Illness Timing/Duration: 24 hours Severity/Quality: moderate Location: central Chest Pain Radiation: no radiation Activities at Onset: none Improving Factors: nothing Nitro Today/Relief: no nitro taken today <Kenji Ca - Last Filed: 03/16/18 05:53> <Yonathan Gregory - Last Filed: 03/16/18 07:48> - General Stated Complaint: CHEST PAIN X 24 HOURS Time Seen by Provider: 03/16/18 05:51 - History of Present Illness Allergies/Adverse Reactions: Allergies Azithromycin Allergy (Verified 11/14/17 19:55) Cephalexin [From Keflex] Allergy (Verified 11/14/17 19:55) Ciprofloxacin [From Cipro] Allergy (Verified 11/14/17 19:55) Clarithromycin [From Biaxin] Allergy (Verified 11/14/17 19:55) Doxycycline [From Vibramycin] Allergy (Verified 11/14/17 19:55) Levofloxacin [From Levaquin] Allergy (Verified 11/14/17 19:55) Metronidazole [From Flagyl] Allergy (Verified 11/14/17 19:55) Omeprazole [From Prilosec] Allergy (Verified 11/14/17 19:55) Pantoprazole [From Protonix] Allergy (Verified 11/14/17 19:55) Promethazine [From Phenergan] Allergy (Verified 07/04/17 07:56) Sulfamethoxazole w/Trimethoprim [From Bactrim] Allergy (Verified 07/04/17 07:56) Home Medications: Ambulatory Orders Amiodarone HCl 200 mg PO DAILY 12/30/17 Calcitriol 0.25 mcg PO MOFR 12/30/17 Famotidine [Pepcid] 20 mg PO DAILY 12/30/17 Ferrous Gluconate [Iron 27] 240 mg PO BID 12/30/17 Liothyronine Sodium 25 mcg PO DAILY 12/30/17 Methylcobalamin [B-12] 1,000 mcg PO DAILY 12/30/17 Simvastatin 40 mg PO DAILY 12/30/17 Warfarin Sodium 1 mg PO SUWETHSA 12/30/17 Warfarin Sodium 2 mg PO MOFR 12/30/17 guaiFENesin ER TAB [Mucinex Tab] 600 mg PO BID #20 tab 01/01/18 Morphine Sulfate 4 mg IV ONCE #4 inj 03/16/18 Review of Systems - Review of Systems Constitutional: States: no symptoms reported EENTM: States: no symptoms reported Respiratory: States: no symptoms reported Cardiology: States: see HPI Gastrointestinal/Abdominal: States: see HPI Genitourinary: States: no symptoms reported Musculoskeletal: States: no symptoms reported Skin: States: no symptoms reported Neurological: States: no symptoms reported Endocrine: States: no symptoms reported Hematologic/Lymphatic: States: no symptoms reported <Kenji Ca - Last Filed: 03/16/18 05:53> Past Medical History (General) - Patient Medical History Hx Seizures: No Hx Stroke: No Hx Dementia: No Hx Asthma: No Hx of COPD: No Hx Cardiac Disorders: Yes - A-Fib Hx Congestive Heart Failure: No Hx Pacemaker: No Hx Hypertension: No Hx Thyroid Disease: Yes Hx Diabetes: No Hx Gastroesophageal Reflux: Yes - Hx peptic ulcer Hx Renal Disease: Yes - Kidney failure Hx Cancer: Yes - Prostate Hx of HIV: No Hx Hepatitis C: No Hx MRSA: No - Vaccination History Hx Tetanus, Diphtheria Vaccination: No Hx Influenza Vaccination: Yes - 2017 Hx Pneumococcal Vaccination: Yes - Social History Hx Tobacco Use: Yes - Quit around 1965 Hx Chewing Tobacco Use: No Hx Alcohol Use: No Hx Substance Use: No Hx Substance Use Treatment: No Hx Depression: No Hx Physical Abuse: No Hx Emotional Abuse: No Hx Suspected Abuse: No - Female History Patient : No <Kenji Ca - Last Filed: 03/16/18 05:53> Family Medical History - Family History Father Name: Christopher Yang Age (years): 80 Living Status: Age at (years of age): 80 Cause of : Bladder cancer. Hx Family Cancer: Yes - bladder cancer Mother Family History: No Known Name: Dennis Yang Age (years): 88 Living Status: Age at (years of age): 88 Cause of : House fire Hx Family Asthma: No Hx Family Congestive Heart Failure: No Hx Family Hypertension: No Hx Family Stroke: No Hx Cardiac Disease: No Hx Family Diabetes: No Hx Family Cancer: Yes <LannyKenji - Last Filed: 03/16/18 05:53> Physical Exam - Physical Exam General Appearance: Alert, Obvious distress Eyes, Ears, Nose, Throat Exam: PERRL/EOMI, normal ENT inspection, TMs normal, pharynx normal Neck: non-tender, full range of motion, supple Respiratory: chest non-tender, lungs clear, normal breath sounds, no respiratory distress Cardiovascular/Chest: normal peripheral pulses, no edema Peripheral Pulses: radial,right: 2+, radial,left: 2+, femoral,right: 2+, femoral ,left: 2+ Gastrointestinal/Abdominal: normal bowel sounds, non tender, soft, no organomegaly, other - UPPER MIDLINE SCAR NOTED Extremity: normal range of motion, non-tender, normal inspection Neurologic: operating room orderly II-XII nml as tested, normal mood/affect, oriented x 3 Lymphatic: no adenopathy <Kenji Ca - Last Filed: 03/16/18 05:53> Progress - EKG/XRAY/CT EKG: Fibrillation Comments: AF RATE [address] T CHANGES NO ACUTE INFARCTION NOTED <LannyKenji - Last Filed: 03/16/18 05:53> - Results/Orders Results/Orders: CXR= NO ACUTE PROCESS 0740: FEELS BETTER AFTER THE PATIENT WAS GIVEN MORPHINE SULFATE. THE TROPONIN I IS REPORTED 0.01. PLAN: WILL OBSERVE FOR CHEST PAIN. <Yonathan Gregory - Last Filed: 03/16/18 07:48> Departure <Kenji Ca - Last Filed: 03/16/18 05:53> <Yonathan Gregory - Last Filed: 03/16/18 07:48> - Departure Clinical Impression: Pleuritic chest pain [id number] kidney injury Qualifiers: Acute renal failure type: unspecified Chronic kidney disease stage: stage 2 ( mild) Qualified Code(s): N17.9 - Acute kidney failure, unspecified; N18.2 - Chronic kidney disease, stage 2 (mild) Fibrillation, atrial Qualifiers: Atrial fibrillation type: chronic Qualified Code(s): I48.2 - Chronic atrial fibrillation Disposition: Admit Patient Condition: Fair Referrals: Wesly Wells III, MD [Primary Care Provider] - 1-2 Weeks Prescriptions: Morphine Sulfate 4 mg IV ONCE #4 inj Home Medications: Ambulatory Orders Amiodarone HCl 200 mg PO DAILY 12/30/17 Calcitriol 0.25 mcg PO MOFR 12/30/17 Famotidine [Pepcid] 20 mg PO DAILY 12/30/17 Ferrous Gluconate [Iron 27] 240 mg PO BID 12/30/17 Liothyronine Sodium 25 mcg PO DAILY 12/30/17 Methylcobalamin [B-12] 1,000 mcg PO DAILY 12/30/17 Simvastatin 40 mg PO DAILY 12/30/17 Warfarin Sodium 1 mg PO SUWETHSA 12/30/17 Warfarin Sodium 2 mg PO MOFR 12/30/17 guaiFENesin ER TAB [Mucinex Tab] 600 mg PO BID #20 tab 01/01/18 Morphine Sulfate 4 mg IV ONCE #4 inj 03/16/18 Decision To Admit - Decistion To Admit Decision to Admit Date: 03/16/18 Decision to Admit Time: 07:44 <Yonathan Gregory - Last Filed: 03/16/18 07:48>
[2018-03-16] MEDS ORDERED: ONDANSETRON INJ 4 MG/2 ML VIAL IV ONE (05:58)
--- NOTE | 2018-03-16 06:55 | RAD ---
EXAM DESCRIPTION: Chest,1 View CLINICAL HISTORY: SOB COMPARISON: 12/30/2017 FINDINGS: Single frontal view of the chest. The cardiomediastinal silhouette has normal size and contour. No consolidation, pneumothorax, or pleural effusion. No displaced rib fractures identified. Leads overlie the chest. Upper abdominal soft tissues are unremarkable. IMPRESSION: 1. No acute pulmonary process identified. Electronically signed by: Jose Alberto Ornelas 03/16/2018 6:54 AM CDT
--- NOTE | 2018-03-16 10:12 | HP ---
SUPERVISING PHYSICIAN: Waylon Cosme MD CHIEF COMPLAINT: Chest pain. HISTORY OF PRESENT ILLNESS: This is an 82-year-old male patient who came to the Emergency Room due to a sharp pain in his midchest that had started the previous night. He has had a cold for about a week and saw the nurse practitioner in the urgent care and was on Augmentin. He has a significant history of chronic obstructive pulmonary disease and he had a cough with chest congestion and shortness of breath, but when his chest pain started yesterday, he came to the Emergency Room because the pain would not go away. It was continuous, it was midsternal that went through to the back. In the Emergency Room, his sodium was 142, potassium 4.6, chloride 117, carbon dioxide 16, BUN 48 , creatinine 3.13. He had a history of renal failure and his baseline creatinine is 3. His initial set of cardiac enzymes was negative. His WBCs were elevated at 13.9 with a hemoglobin of 12.7, hematocrit 37.3. Chest x-ray showed no acute cardiopulmonary processes. Vital signs showed a low grade fever of 99.9, heart rate 111, blood pressure 147/65 and respiratory rate 20. O2 saturation was 95% on room air. It was also thought that he could be having some pleuritic pain. He was given morphine sulfate, Zofran and I was called for hospital admission. PAST MEDICAL HISTORY: 1. Atrial fibrillation. 2. Chronic kidney disease, stage 4. 3. Diverticulitis. 4. Gastroesophageal reflux disease. 5. Osteoarthritis. 6. Iron deficiency anemia. 7. Chronic nausea from renal failure. PAST SURGICAL HISTORY: 1. Appendectomy. 2. Hernia repair times 2. 3. Prostatectomy. 4. Throat surgery. 5. Left femur surgery. 6. Hemodialysis done to the left arm. OUTPATIENT MEDICATIONS: Per the EMR and awaiting verification. ALLERGIES: AZITHROMYCIN, BIAXIN, CEPHALOSPORIN, CIPRO, FLAGYL, PRILOSEC, PROTONIX, SULFA, VIBRAMYCIN, TRICOR. SOCIAL HISTORY: He is retired. He lives at [place]. He is . He has two children. He has a previous history of smoking, but he quite in 1985. There is no history of ETOH or illicit drug use. REVIEW OF SYSTEMS: GENERAL: Positive for low grade fever. Negative for fatigue or weight changes. RESPIRATORY: Positive for coughing, wheezing, shortness of breath. CARDIAC: Positive for chest pain. Negative for palpitations or tachycardia. GASTROINTESTINAL: Negative for nausea, vomiting, diarrhea, constipation. GENITOURINARY: Negative for hematuria, dysuria or polyuria. MUSCULOSKELETAL: Negative for back pain, arthralgias, myalgias. NEUROLOGIC: Negative for headache, dizziness or seizures. PHYSICAL EXAMINATION: VITAL SIGNS: Temperature 99.4. Heart rate 111. Blood pressure 115/67. Respiratory rate 22. O2 saturation 93% on 2 liters nasal cannula. GENERAL: This is an 82-year-old male patient who is lying in his hospital bed. He is in no acute distress. HEENT: Normocephalic, atraumatic. Pupils are equal and reactive. Oropharynx is clear. Oral mucous membranes are moist. NECK: Supple without mass. RESPIRATORY: Diminished breath sounds throughout, especially in the bases. He has a few scattered rhonchi through the apices. CHEST: There is equal rise and fall of the chest with inspiration and expiration. CARDIOVASCULAR: Tachycardic rate and slightly irregular rhythm. GASTROINTESTINAL: Abdomen is soft, nondistended, nontender. Bowel sounds are positive. EXTREMITIES: No cyanosis, clubbing or edema. NEUROLOGIC: Awake, alert and oriented times three. LABORATORY: Labs and films are as per history of present illness. ASSESSMENT: 1. Severe sepsis, most likely related to an upper respiratory infection with acute on chronic bronchitis. On presentation, his heart rate was 111, respiratory rate 22 and white blood cell count 13,900. He failed outpatient therapy as he was seen in clinic one week ago and treated with Augmentin. 2. Chest pain, rule out myocardial infarction. His cardiac enzymes have been negative so far and most likely maybe pleuritic in nature. 3. Chronic renal failure with baseline creatinine of approximately 3. 4. History of atrial fibrillation on Coumadin and amiodarone. INR is somewhat subtherapeutic at 1.79. 5. Gastroesophageal reflux disease. PLAN: We will admit the patient to the hospital. Continue his serial cardiac enzymes to rule out any coronary event. Most likely this is an acute on chronic bronchitis. I have done blood cultures, checked his PT/INR in the morning. He will be on Mucinex. I have given him one dose of steroids. I will start him on some antibiotics. Encourage good pulmonary hygiene. Repeat his chest x-ray in the morning. We will continue to monitor the patient closely and follow as needed. Dr. Cosme is the collaborating physician and available for consultation. [facility][id number] [facility]
[2018-03-16] MEDS ORDERED: MORPHINE SULFATE INJ 10 MG/ML VIAL IV PRN (10:37)
[2018-03-16] MEDS ORDERED: ACETAMINOPHEN 325 MG TAB PO PRN (10:37)
[2018-03-16] MEDS ORDERED: SODIUM CHLORIDE 0.9% (FLUSH) 10 ML SYG IV PRN (10:37)
[2018-03-16] MEDS ORDERED: NITROGLYCERIN 0.4 MG 25 EA TAB SL PRN (10:37)
[2018-03-16] MEDS ORDERED: PANTOPRAZOLE SODIUM IV 40 MG VIAL IV SCH (11:00)
[2018-03-16] MEDS: IV SET AND CAP CHANGE INJ INJ SCH (13:56)
[2018-03-16] MEDS ORDERED: SODIUM BICARBONATE SYRINGE 75 MEQ in DEXTROSE 5% 1000ML 1,000 ML IV ONE (16:03)
[2018-03-16] MEDS ORDERED: methylPREDNISolone SODIUM SUC 125 MG/2 ML VIAL IV ONE (16:07)
[2018-03-16] MEDS ORDERED: DEXTROSE 5% 1000ML 1,000 ML IVS ONE (16:32)
[2018-03-16] MEDS ORDERED: SODIUM BICARBONATE SYRINGE 50 MEQ/50 ML SYG IV ONE (16:32)
[2018-03-16] MEDS ORDERED: SODIUM CHL 0.9% 50ML MIN-BAG+ 50 ML IVPB ONE ×2 (17:34→20:34)
[2018-03-16] MEDS ORDERED: MEROPENEM 500 MG VIAL IVPB ONE ×2 (17:34→20:35)
[2018-03-16] MEDS: MEROPENEM 500 MG in SODIUM CHL 0.9% 50ML MIN-BAG+ 50 ML IVPB SCH (17:38)
[2018-03-16] MEDS: LEVALBUTEROL NEBS 1.25 MG/3 ML VIAL NEB SCH (19:40)
[2018-03-16] MEDS ORDERED: FAMOTIDINE 20 MG TAB ONE (20:35)
[2018-03-16] MEDS: guaiFENesin ER TAB 600 MG TAB PO SCH (21:02)
[2018-03-16] MEDS: FERROUS SULFATE 325 MG TAB PO SCH (21:02)
[2018-03-16] MEDS: SODIUM CHLORIDE 0.9% (FLUSH) 10 ML SYG IV SCH (21:03)
[2018-03-17] MEDS: MEROPENEM 500 MG in SODIUM CHL 0.9% 50ML MIN-BAG+ 50 ML IVPB SCH ×2 (04:18→17:30)
[2018-03-17] MEDS: FAMOTIDINE 20 MG TAB PO SCH (06:11)
[2018-03-17] MEDS: LEVALBUTEROL NEBS 1.25 MG/3 ML VIAL NEB SCH ×4 (07:16→20:06)
[2018-03-17] MEDS: guaiFENesin ER TAB 600 MG TAB PO SCH ×2 (09:15→21:16)
[2018-03-17] MEDS: FERROUS SULFATE 325 MG TAB PO SCH ×2 (09:15→21:16)
[2018-03-17] MEDS: AMIODARONE HCL 200 MG TAB PO SCH (09:15)
[2018-03-17] MEDS: ASPIRIN TABLET 325 MG TAB PO SCH (09:15)
[2018-03-17] MEDS: SODIUM CHLORIDE 0.9% (FLUSH) 10 ML SYG IV SCH ×2 (09:15→21:16)
[2018-03-17] MEDS: LIOTHYRONINE SODIUM 25 MCG PO SCH (12:51)
[2018-03-17] MEDS: WARFARIN SODIUM 2 MG TAB PO SCH (12:53)
[2018-03-17] MEDS ORDERED: MEROPENEM 500 MG VIAL IVPB ONE ×2 (17:03→19:46)
[2018-03-17] MEDS ORDERED: SODIUM CHL 0.9% 50ML MIN-BAG+ 50 ML IVPB ONE ×2 (17:03→19:45)
[2018-03-17] MEDS: CALCITRIOL 0.25 MCG CAP PO SCH (17:30)
--- NOTE | 2018-03-17 20:00 | PN ---
SUPERVISING PHYSICIAN: Waylon Cosme MD DATE: 03/17/18 SUBJECTIVE: The patient is sitting up in bed with his family at the bedside. He feels much better than yesterday. He has no shortness of breath. The pleuritic pain is gone. He is still coughing, but it continues to improve. He denies chest pain, nausea, vomiting or diarrhea. OBJECTIVE: VITAL SIGNS: Afebrile. Heart rate 70. Blood pressure 90/60. Respiratory rate 16. O2 saturation 96%. GENERAL: RESPIRATORY: Essentially clear to auscultation bilaterally. There is equal rise and fall of the chest with inspiration and expiration. CARDIAC: Regular rate and rhythm. GASTROINTESTINAL: Abdomen is soft, nondistended, nontender. Bowel sounds are positive. EXTREMITIES: No cyanosis, clubbing or edema. NEUROLOGIC: Awake, alert and oriented times three. LABORATORY: Sodium 134, potassium 5.1, chloride 107, carbon dioxide 17, BUN 53 , creatinine 3.29. Glucose 211. Total protein 6, albumin 2.5. WBCs 14, hemoglobin 9.5, hematocrit 27.7. INR 2.07. Preliminary blood cultures show no growth after 24 hours. All other labs and films have been reviewed via the EMR. ASSESSMENT: 1. Severe sepsis, most likely related to an upper respiratory infection with acute on chronic bronchitis. On presentation, his heart rate was 111, respiratory rate 22 and white blood cell count 13,900. He failed outpatient therapy as he was seen in clinic one week ago and treated with Augmentin. 2. Chest pain, rule out myocardial infarction. His cardiac enzymes have been negative. Most likely the chest pain was pleuritic in nature. 3. Chronic renal failure with baseline creatinine of approximately 3. 4. History of atrial fibrillation on Coumadin and amiodarone. INR is now therapeutic at 2.07. 5. Gastroesophageal reflux disease. PLAN: We will continue present supportive care. His kidney function has slightly worsened in spite of getting Dextrose yesterday with 1.5 amps of bicarb. His potassium is slightly elevated. We will do AM labs to monitor this. I have also included a magnesium and phosphorous. He does see Dr. Lopes for his chronic renal issues. I am also going to do another PT/INR in the morning. His bronchitis has improved overnight and hopefully he can be discharged on antibiotics. He is on IV Merrem as he is allergic to multiple antibiotics. He had been on Augmentin prior to his admission. I have encouraged good pulmonary hygiene. We will continue to monitor the patient closely and follow as needed. Dr. Cosme is the collaborating physician and available for consultation. #[id number] [facility]
[2018-03-17] MEDS: SIMVASTATIN 20 MG TAB PO SCH (21:17)
[2018-03-18] MEDS: MEROPENEM 500 MG in SODIUM CHL 0.9% 50ML MIN-BAG+ 50 ML IVPB SCH ×2 (05:00→16:27)
[2018-03-18] MEDS: FAMOTIDINE 20 MG TAB PO SCH (06:33)
[2018-03-18] MEDS: LEVALBUTEROL NEBS 1.25 MG/3 ML VIAL NEB SCH ×4 (07:53→21:08)
[2018-03-18] MEDS: ASPIRIN TABLET 325 MG TAB PO SCH (09:26)
[2018-03-18] MEDS: guaiFENesin ER TAB 600 MG TAB PO SCH ×2 (09:26→21:17)
[2018-03-18] MEDS: FERROUS SULFATE 325 MG TAB PO SCH ×2 (09:26→21:18)
[2018-03-18] MEDS: AMIODARONE HCL 200 MG TAB PO SCH (09:26)
[2018-03-18] MEDS: SODIUM CHLORIDE 0.9% (FLUSH) 10 ML SYG IV SCH ×2 (09:27→21:18)
[2018-03-18] MEDS: LIOTHYRONINE SODIUM 25 MCG PO SCH (09:28)
[2018-03-18] MEDS: WARFARIN SODIUM 1 MG TAB PO SCH (12:33)
[2018-03-18] MEDS ORDERED: SODIUM BICARBONATE SYRINGE 50 MEQ/50 ML SYG IV ONE (14:03)
[2018-03-18] MEDS ORDERED: DEXTROSE 5% 1000ML 1,000 ML IVS ONE (14:04)
[2018-03-18] MEDS: SODIUM BICARBONATE VIAL 75 MEQ in DEXTROSE 5% 1000ML 1,000 ML IVS PRN (14:20)
[2018-03-18] MEDS ORDERED: SODIUM CHL 0.9% 50ML MIN-BAG+ 50 ML IVPB ONE ×2 (16:20→19:48)
[2018-03-18] MEDS ORDERED: MEROPENEM 500 MG VIAL IVPB ONE ×2 (16:21→19:48)
--- NOTE | 2018-03-18 19:29 | PN ---
DATE: SUPERVISING PHYSICIAN:: Waylon Cosme MD SUBJECTIVE: Patient is doing well. Notes that he feels better than previous days, no longer having any pleuritic pain but he continues to have a significant cough. OBJECTIVE: VITAL SIGNS: He remains afebrile with temperature 98.4, pulse 92, blood pressure 104/69, respiratory rate 16, saturation 95% on room air. I&O: Positive balance of 130 with 1330 in and 1200 out. Weight 65.5 kg CHEST: Lung sounds were clear but diminished toward the bases. HEART: Regular rate and rhythm. ABDOMEN soft, non-tender, positive bowel sounds. EXTREMITIES: No cyanosis, clubbing, or edema. NEUROLOGICAL: He is alert and oriented x 3. LABORATORY: CBC shows a significant increase in white count at 26,100 with hemoglobin 9 and cerebellar testing 26.9, platelet count at 267,000, differential showing a left shift, 94% neutrophils. Chemistries show a persistent hyponatremia with 4.9 potassium and a continued low carbon dioxide but showing some slight improvement at 18 with BUN 72, creatinine has gone up to 3.74, serum osmolality elevated slightly from previous days. BNP this morning was 1160. MICROBIOLOGY: Blood cultures remain negative after 48 hours. RADIOLOGY: No additional radiographic studies were submitted. ASSESSMENT: 1. Severe sepsis secondary to developing bibasilar pneumonia community acquired in a patient with renal failure showing worsening leukocytosis 2. Metabolic acidosis secondary to acute on chronic renal failure requiring bicarbonate infusion and exacerbation by some renal azotemia and mild dehydration. 3. Acute on chronic renal failure as noted with a baseline creatinine 23.1 and 3.4 4. Chest pain with no evidence of myocardial infarction. His cardiac enzymes have been negative baseline and patient without any significant continued pain likely pleuritic in nature secondary to underlying bibasilar pneumonia. 5. History of atrial fibrillation on chronic anticoagulant therapy with Coumadin and rate controlled with amiodarone. 6. Gastroesophageal reflux disease. PLAN: Discussed the case with Dr. Lopes, his color print inspector and considering the patient although on his laboratory studies shows right worsening leukocytosis, clinically he shows to be stable, therefore will utilized it another 24 hours with bicarbonate infusion with D5W at a slow rate given his elevated BNP and excessive fluid overload. Will continue with current antibiotic therapy and closely monitor. Will once again touch base with Dr. Lopes in the morning with updated laboratory studies and should he show to be improving, certainly will consider discharging him tomorrow or Tuesday to followup with Dr. Lopes as well as his primary care physician, Dr. Wells. Until the, we will continue to monitor and treat appropriately. #[id number] MTDD
[2018-03-18] MEDS: SIMVASTATIN 20 MG TAB PO SCH (21:19)
[2018-03-19] MEDS: MEROPENEM 500 MG in SODIUM CHL 0.9% 50ML MIN-BAG+ 50 ML IVPB SCH (04:27)
[2018-03-19] MEDS ORDERED: DEXTROSE 5% 1000ML 1,000 ML IVS ONE (05:22)
[2018-03-19] MEDS ORDERED: SODIUM BICARBONATE VIAL 50 MEQ/50 ML VIAL ONE (05:23)
[2018-03-19] MEDS: SODIUM BICARBONATE VIAL 75 MEQ in DEXTROSE 5% 1000ML 1,000 ML IVS PRN (05:28)
[2018-03-19] MEDS: FAMOTIDINE 20 MG TAB PO SCH (05:47)
--- NOTE | 2018-03-19 08:36 | RAD ---
EXAM DESCRIPTION: Chest,2 Views CLINICAL HISTORY: 82 years, Male, pneumonia COMPARISON: Chest x-ray dated 03/16/2018 FINDINGS: PA and lateral chest radiographs were performed. The interval since the prior study, a LEFT pleural effusion has formed, small to moderate in size. Airspace opacity in both lower lobes is mild. A trace RIGHT pleural effusion is also suspected. The aortic arch is calcified. The cardiac silhouette, hilar regions, trachea, soft tissues and bony structures are unremarkable. IMPRESSION: New LEFT greater than RIGHT pleural effusions with adjacent airspace opacity. Electronically signed by: Mary Batista MD 03/19/2018 8:35 AM CDT
[2018-03-19] MEDS: LEVALBUTEROL NEBS 1.25 MG/3 ML VIAL NEB SCH ×4 (08:47→20:25)
[2018-03-19] MEDS: SODIUM CHLORIDE 0.9% (FLUSH) 10 ML SYG IV SCH ×2 (09:30→21:00)
[2018-03-19] MEDS: FERROUS SULFATE 325 MG TAB PO SCH ×2 (09:31→21:01)
[2018-03-19] MEDS: ASPIRIN TABLET 325 MG TAB PO SCH (09:31)
[2018-03-19] MEDS: guaiFENesin ER TAB 600 MG TAB PO SCH ×2 (09:31→21:01)
[2018-03-19] MEDS: AMIODARONE HCL 200 MG TAB PO SCH (09:31)
[2018-03-19] MEDS: LIOTHYRONINE SODIUM 25 MCG PO SCH (11:10)
[2018-03-19] MEDS: IV SET AND CAP CHANGE INJ INJ SCH (11:12)
[2018-03-19] MEDS: WARFARIN SODIUM 1 MG TAB PO SCH (12:17)
--- NOTE | 2018-03-19 12:45 | CT ---
EXAM: CT abdomen and pelvis without contrast. INDICATION: Abdominal pain, acute. TECHNIQUE: Contiguous axial CT images of the abdomen and pelvis. Intravenous contrast: Absent. Oral contrast: Absent. DLP 616 mGy-cm. This exam was performed according to our departmental dose-optimization program, which includes automated exposure control, adjustment of the mA and/or kV according to patient size and/or use of iterative reconstruction technique. COMPARISON: 11/23/2017. FINDINGS: Lower chest: Partially imaged. Lung bases: Small bilateral pleural effusions, left greater than right Cardiac apex: There is a pericardial effusion which measures up to 1.1 cm in thickness Solid abdominal viscera: Limited by lack of intravenous contrast. Liver: Unremarkable. Gallbladder: Contains some layering hyperdensity, which may represent cysts stones or sludge. Pancreas: Unremarkable. Spleen: Unremarkable. Adrenal glands: Unremarkable. Right kidney: No urolithiasis or hydronephrosis. Multiple cysts are noted Left kidney: No urolithiasis or hydronephrosis. Multiple cysts are noted. Urinary bladder: Unremarkable. Abdominal aorta: Atherosclerotic calcifications Peritoneal: Free fluid: None. Free air: None. Other: No pathologic sized lymph nodes in the upper abdomen. Bowel: Stomach: Unremarkable. Small bowel: Unremarkable. Appendix: Not uniquely identified, however there are no inflammatory changes within the right lower quadrant Colon: Extensive diverticulosis without evidence of diverticulitis Rectum: Unremarkable. Prostate: Prostatectomy Bones: Multilevel spondylosis IMPRESSION: Small bilateral pleural effusions with small pericardial effusion. Diverticulosis without evidence of diverticulitis. Layering hyperdensity within the gallbladder which may represent stones or sludge. Electronically signed by: Clif Cruz MD 03/19/2018 12:43 PM CDT Workstation: [employer]
--- NOTE | 2018-03-19 14:12 | PN ---
DATE: SUPERVISING PHYSICIAN:: Jose Alberto Barbour MD SUBJECTIVE: Patient notes that he does not feel as well as he did yesterday. He remains afebrile and has been on a sodium bicarb IV infusion for the last 24 hours without any complications.. OBJECTIVE: VITAL SIGNS: Temperature 97.5 pulse 88, blood pressure 120/76, respiratory rate 16 to 22, saturation 99% on room air. I&O: Positive balance of 1175 with 2325 in and 1150 out. Weight is slightly up to 65.5 kg. He did have one bowel movement today. CHEST: Lungs remain clear to auscultation but diminished bilaterally. HEART: Regular rate and rhythm. ABDOMEN Soft, non-tender, positive bowel sounds. He does have some mild tenderness on palpation to the left quadrant but no rebound tenderness, no peritoneal signs. EXTREMITIES: No cyanosis, clubbing, or edema. NEUROLOGICAL: He is alert and oriented x 3. LABORATORY: White count is down to 15,100, hemoglobin improved to 9.8 and hematocrit up to 28.6. Platelet count is at 289,000, left shift continues to be present with a slight improvement. PT was not completed today, will be repeated tomorrow. Chemistries show normal electrolytes today with potassium of 4.3, BUN slightly elevated to 73 from previous but creatinine is down to 3.58 which is close to baseline status with osmolality at 294, calcium 7.7, albumin 2.3. Liver functions all show to be within normal limits. MICROBIOLOGY: Blood cultures remain negative after 3 days.. RADIOLOGY: 2-view chest x-ray this morning and per radiology interpretation showed a new left greater than right pleural effusion with adjacent air space opacities. He also had an abdominal pelvic CT for followup on the left-sided quadrant pain without contrast with radiologist noting small bilateral pleural effusions with a small pericardial effusion. There was note of diverticulosis with no evidence of diverticulitis. There was noted some layering within the gallbladder which may represent stones or sludge. ASSESSMENT: 1. Sepsis secondary to bilateral pneumonia community acquired with the patient having history of renal failure with a significant leukocytosis improving with meropenem. 2. Mild metabolic acidosis secondary to acute on chronic renal failure showing some slight improvement after bicarbonate administration with some exacerbation after underlying mild dehydration. 3. Acute on chronic renal failure as noted with a baseline creatinine of3.1 to 3.4 current levels returning to baseline status. 4. Chest pain without evidence of myocardial infarction with cardiac enzymes being negative and no significant continued chest pain described as more pleuritic in nature likely secondary to underlying bibasilar pneumonia. 5. Bilateral pleural effusions. 6. Elevated BNP with no mention of previous history of congestive heart failure. 7. Lower quadrant pain, left lower quadrant, with CT findings showing diverticulosis but no acute evidence of diverticulitis with patient showing clinical improvement. 8. History of atrial fibrillation on chronic anticoagulant therapy with Coumadin rate controlled with amiodarone. 9. Gastroesophageal reflux disease. PLAN: Will stop his fluids today as he is starting to get on the positive side. He will be saline-locked with anticipation of hopefully being able to be discharged tomorrow with continued antibiotic therapy to include Augmentin. His meropenem today will be adjusted for his renal function to 250 mg every 24 hours and he will also once discharged, need addressing a renal dosing of Augmentin as he lists multiple allergies to multiple antibiotics. Will encourage aggressive pulmonary hygiene. Again, will anticipate hopefully discharge tomorrow after repeat laboratory studies and clinical reevaluation. Until the, we will continue to monitor and treat appropriately. #[id number] Discussed the case with Dr. Lopes, his bridge opener and considering the patient although on his laboratory studies shows right worsening leukocytosis, clinically he shows to be stable, therefore will utilized it another 24 hours with bicarbonate infusion with D5W at a slow rate given his elevated BNP and excessive fluid overload. Will continue with current antibiotic therapy and closely monitor. Will once again touch base with Dr. Lopes in the morning with updated laboratory studies and should he show to be improving, certainly will consider discharging him tomorrow or Tuesday to followup with Dr. Lopes as well as his primary care physician, Dr. Wells. Until the, we will continue to monitor and treat appropriately. HARISH
[2018-03-19] MEDS: SIMVASTATIN 20 MG TAB PO SCH (21:02)
[2018-03-20] MEDS: FAMOTIDINE 20 MG TAB PO SCH (06:07)
[2018-03-20] MEDS ORDERED: SODIUM CHL 0.9% 50ML MIN-BAG+ 50 ML IVPB ONE ×2 (08:31→19:37)
[2018-03-20] MEDS ORDERED: MEROPENEM 500 MG VIAL IVPB ONE ×2 (08:32→19:37)
[2018-03-20] MEDS: guaiFENesin ER TAB 600 MG TAB PO SCH ×2 (09:00→20:50)
[2018-03-20] MEDS ORDERED: MEROPENEM IVPB SCH (09:00)
[2018-03-20] MEDS ORDERED: SODIUM CHL 0.9% IVPB SCH (09:00)
[2018-03-20] MEDS: CALCITRIOL 0.25 MCG CAP PO SCH (09:00)
[2018-03-20] MEDS: AMIODARONE HCL 200 MG TAB PO SCH (09:00)
[2018-03-20] MEDS: FERROUS SULFATE 325 MG TAB PO SCH ×2 (09:01→20:49)
[2018-03-20] MEDS: ASPIRIN TABLET 325 MG TAB PO SCH (09:01)
[2018-03-20] MEDS: SODIUM CHLORIDE 0.9% (FLUSH) 10 ML SYG IV SCH ×2 (09:01→20:50)
[2018-03-20] MEDS: LIOTHYRONINE SODIUM 25 MCG PO SCH (09:02)
[2018-03-20] MEDS: MEROPENEM 500 MG in SODIUM CHL 0.9% 50ML MIN-BAG+ 50 ML IVPB SCH ×2 (09:05→21:19)
[2018-03-20] MEDS: LEVALBUTEROL NEBS 1.25 MG/3 ML VIAL NEB SCH ×4 (09:07→20:27)
[2018-03-20] MEDS: SODIUM BICARBONATE 650 MG TAB PO SCH ×2 (11:47→20:49)
--- NOTE | 2018-03-20 13:37 | PN ---
SUPERVISING PHYSICIAN: Gibson Kemp MD DATE: 03/20/18 SUBJECTIVE: The patient states he does feel better than yesterday, however, he gets pretty winded whenever he gets up to go to the bathroom. He has not done a lot of walking in the hospital. OBJECTIVE: VITAL SIGNS: Blood pressure 104/66. Heart rate 106. Respiratory rate 16. Temperature 98.3. Oxygen saturation 96%. GENERAL: Mr. Yang is an 82-year-old male patient in no active distress currently. NEUROLOGIC: Alert and oriented. LUNGS: Diminished in the bases, but otherwise clear to auscultation. CARDIOVASCULAR: Heart rate is a little bit tachycardic. Normal S1, S2. ABDOMEN: Soft. Positive bowel sounds. EXTREMITIES: Lower extremities with no edema. Pulses 2+. Capillary refill is less than 2 seconds. LABORATORY: White count 11.2, hemoglobin 10.3, hematocrit 30.3, platelet count 298. INR 2.09. Sodium 142, potassium 4.6, chloride 116, CO2 18, BUN 72, creatinine 3.61, glucose 105, calcium 8.0. ASSESSMENT: 1. Sepsis secondary to bilateral pneumonia. 2. Acute on chronic renal failure. 3. Metabolic acidosis secondary to #2. 4. Chest pain, acute coronary syndrome has been ruled out. 5. Bilateral pleural effusions. 6. Left lower quadrant abdominal pain, resolved. 7. Atrial fibrillation with controlled ventricular rate currently. PLAN: I will order physical therapy and see how he does with this. I have also spoke with Dr. Lopes. I am going to put him on 2 tabs of sodium bicarb b.i.d. He requested to see the patient this Tuesday at 10:30 in the morning. I will probably be able to discharge him tomorrow if he is able to ambulate adequately. If not, then I will make a followup appointment with Dr. Lopes next week. We will continue the Merrem at this time. The only reason Merrem is being used is that he is allergic to multiple other antibiotics. Cultures are so far negative. We will reevaluate labs and his status tomorrow. #[id number] MTDD
[2018-03-20] MEDS: WARFARIN SODIUM 2 MG TAB PO SCH (14:53)
[2018-03-20] MEDS: SIMVASTATIN 20 MG TAB PO SCH (20:50)
[2018-03-21] MEDS: FAMOTIDINE 20 MG TAB PO SCH (06:07)
[2018-03-21 06:16] VITALS: TEMP 98.8
[2018-03-21] MEDS: FERROUS SULFATE 325 MG TAB PO SCH (08:29)
[2018-03-21] MEDS: ASPIRIN TABLET 325 MG TAB PO SCH (08:29)
[2018-03-21] MEDS: AMIODARONE HCL 200 MG TAB PO SCH (08:29)
[2018-03-21] MEDS: guaiFENesin ER TAB 600 MG TAB PO SCH (08:29)
[2018-03-21] MEDS: SODIUM BICARBONATE 650 MG TAB PO SCH (08:29)
[2018-03-21] MEDS: SODIUM CHLORIDE 0.9% (FLUSH) 10 ML SYG IV SCH (08:29)
[2018-03-21] MEDS: LIOTHYRONINE SODIUM 25 MCG PO SCH (08:32)
[2018-03-21] MEDS: LEVALBUTEROL NEBS 1.25 MG/3 ML VIAL NEB SCH (08:50)
[2018-03-21] MEDS ORDERED: SODIUM CHL 0.9% 50ML MIN-BAG+ 50 ML IVPB ONE (09:15)
[2018-03-21] MEDS ORDERED: MEROPENEM 500 MG VIAL IVPB ONE (09:15)
[2018-03-21] MEDS: MEROPENEM 500 MG in SODIUM CHL 0.9% 50ML MIN-BAG+ 50 ML IVPB SCH (09:18)
[2018-03-21 10:07] VITALS: BP 112/66; O2SAT 99
--- NOTE | 2018-03-21 10:52 | DS ---
SUPERVISING PHYSICIAN: Gibson Kemp MD ADMISSION DIAGNOSIS: 1. Severe sepsis secondary to upper respiratory infection/bronchitis. 2. Chest pain, rule out myocardial infarction. 3. Chronic renal failure. 4. History of atrial fibrillation on warfarin and amiodarone. 5. Gastroesophageal reflux disease. DISCHARGE DIAGNOSIS: 1. Sepsis secondary to bilateral pneumonia. 2. Acute on chronic renal failure. 3. Metabolic acidosis secondary to chronic renal failure. 4. Chest pain, acute coronary syndrome has been ruled out. 5. Bilateral pleural effusions. 6. Abdominal pain, resolved. 7. Atrial fibrillation. HOSPITAL COURSE: This is an 82-year-old male patient who came to the Emergency Room with a sharp pain in the mid-chest that started the night before. He had had an upper respiratory infection the previous week and saw the nurse practitioner at the urgent care and was started on Augmentin. He has chronic obstructive pulmonary disease history as well. When he came to the Emergency Room, he was found to have acute on chronic renal failure, elevated white count at 14,000. His cardiac enzymes were negative. He was admitted to the hospital. During that time, he showed an elevation in his white count that went up to 26,000. Therefore, his antibiotics were changed to Merrem given his multiple allergies. He then had a reduction in his white count and improved. However, his cultures remained negative. He was having some difficulty with ambulation. He uses a walker on a normal basis, but it was felt he was a little more weak than normal, so I had physical therapy take a look at him yesterday and upon their assessment, once he got up, he was able to ambulate fairly well. Therefore, their recommendation was that once he goes back to [place] that home health incorporate a physical therapy component to their visits. Therefore, on day of discharge today, the patient is stable. He has been afebrile for greater than 48 hours at this point. Vital signs have remained normal. White count is nearly normal at this point. INR is therapeutic at this point. He is going to go home on Augmentin. Given his multiple allergies, that is the only medication we can use at this point. He has been instructed that if he starts to get worse for any reason, he would need to come back to the hospital. I have also started him on sodium bicarb tablets yesterday at the request of Dr. Lopes. He also wants to see the patient tomorrow at 10:30 in the morning in his [place] clinic. He will followup with Dr. Wells on 03/28/18 at 1:30 in the afternoon. Activity will be as per physical therapy as well as ambulate with walker. Diet is usual diet. #[id number] MTDD
== END 2018-03-21 10:38 | disposition home health service (06) | DRG 871 ==
LOC: ER 05:44 → MS 10:10 → OBSVTOIN 16:15
PROVIDERS: ADMIT Nurse Practitioner Acute Care; ATTEND Nurse Practitioner
DX: A41.9 Sepsis, unspecified organism (principal); J18.9 Pneumonia, unspecified organism; N17.9 Acute kidney failure, unspecified; J90 Pleural effusion, not elsewhere classified; J44.0 Chronic obstructive pulmonary disease with (acute) lower respiratory infection; N18.4 Chronic kidney disease, stage 4 (severe); R65.21 Severe sepsis with septic shock; E87.1 Hypo-osmolality and hyponatremia; R07.9 Chest pain, unspecified; I48.91 Unspecified atrial fibrillation; K21.9 Gastro-esophageal reflux disease without esophagitis; M19.90 Unspecified osteoarthritis, unspecified site; D50.9 Iron deficiency anemia, unspecified; R10.32 Left lower quadrant pain; K57.30 Diverticulosis of large intestine without perforation or abscess without bleeding; R74.8 Abnormal levels of other serum enzymes; Z88.1 Allergy status to other antibiotic agents; Z88.2 Allergy status to sulfonamides; Z88.8 Allergy status to other drugs, medicaments and biological substances; Z87.891 Personal history of nicotine dependence; Z79.01 Long term (current) use of anticoagulants; Z79.891 Long term (current) use of opiate analgesic; Z79.899 Other long term (current) drug therapy; Z85.46 Personal history of malignant neoplasm of prostate

== ENCOUNTER → 2018-04-24 | Outpatient (CLI) | payer MEDICARE | LOC: GMAL 12:53 | PROVIDERS: ATTEND Family Medicine | DX: N18.6 End stage renal disease (principal); D50.9 Iron deficiency anemia, unspecified; I10 Essential (primary) hypertension ==

== ENCOUNTER → 2018-04-27 | Outpatient (CLI) | payer MEDICARE | LOC: GMAL 17:44 | PROVIDERS: ATTEND Family Medicine | DX: N18.9 Chronic kidney disease, unspecified (principal); D63.1 Anemia in chronic kidney disease ==

== ENCOUNTER → 2018-05-01 | Outpatient (CLI) | payer MEDICARE | LOC: BFHH 13:55 | PROVIDERS: ATTEND Family Medicine | DX: R30.0 Dysuria (principal) ==

== ENCOUNTER → 2018-06-14 | Outpatient (CLI) | payer MEDICARE | LOC: BFHH 11:24 | PROVIDERS: ATTEND Family Medicine | DX: D64.9 Anemia, unspecified (principal) ==

== ENCOUNTER → 2018-07-10 | Outpatient (CLI) | payer MEDICARE | LOC: BFHH 12:22 | PROVIDERS: ATTEND Family Medicine | DX: N18.9 Chronic kidney disease, unspecified (principal); D63.1 Anemia in chronic kidney disease ==

== ENCOUNTER → 2018-07-24 | Outpatient (CLI) | payer MEDICARE | LOC: GMAL 11:50 | PROVIDERS: ATTEND Family Medicine | DX: R30.0 Dysuria (principal) ==

== ENCOUNTER → 2018-08-07 | Outpatient (CLI) | payer MEDICARE | LOC: BFHH 11:08 | PROVIDERS: ATTEND Family Medicine | DX: D63.1 Anemia in chronic kidney disease (principal); I12.0 Hypertensive chronic kidney disease with stage 5 chronic kidney disease or end stage renal disease; I25.10 Atherosclerotic heart disease of native coronary artery without angina pectoris ==

== ENCOUNTER → 2018-08-22 | Outpatient (CLI) | payer MEDICARE | LOC: BFHH 11:31 | PROVIDERS: ATTEND Internal Medicine Nephrology | DX: N18.4 Chronic kidney disease, stage 4 (severe) (principal) ==

== ENCOUNTER → 2018-09-04 | Outpatient (CLI) | payer MEDICARE | LOC: BFHH 13:06 | PROVIDERS: ATTEND Family Medicine | DX: I12.0 Hypertensive chronic kidney disease with stage 5 chronic kidney disease or end stage renal disease (principal); D63.1 Anemia in chronic kidney disease; N18.9 Chronic kidney disease, unspecified ==

== ENCOUNTER → 2018-10-04 | Outpatient (CLI) | payer MEDICARE | LOC: BFHH 13:05 | PROVIDERS: ATTEND Family Medicine | DX: N18.9 Chronic kidney disease, unspecified (principal); D63.1 Anemia in chronic kidney disease ==

== ENCOUNTER 2018-10-10 05:39 | Day surgery (SDC) | payer MEDICARE ==
[2018-10-10] MEDS ORDERED: PROPOFOL 200 MG/20 ML VIAL IV ONE (05:40)
[2018-10-10] MEDS ORDERED: LACTATED RINGERS 1,000 ML ONE (11:08)
[2018-10-10] MEDS ORDERED: BUPIVACAINE 0.25% INJ 30 ML VIAL INJ ONE (11:32)
[2018-10-10] MEDS ORDERED: LIDOCAINE 1% W/ EPINEPHRINE 20 ML VIAL INJ ONE (11:32)
[2018-10-10] MEDS ORDERED: methylPREDNISolone ACETATE 80 MG/ML VIAL ONE (11:32)
[2018-10-10] MEDS ORDERED: MIDAZOLAM INJ 2 MG/2 ML VIAL ONE (12:29)
[2018-10-10 14:19] VITALS: BP 122/76; TEMP 98; O2SAT 96
--- NOTE | 2018-10-19 08:13 | OP ---
DATE OF PROCEDURE: 10/10/18 PREOPERATIVE DIAGNOSIS: 1. Bilateral hip osteoarthritis. POSTOPERATIVE DIAGNOSIS: 1. Bilateral hip osteoarthritis. PROCEDURE: 1. Bilateral hip injection. SURGEON: Blake Ruiz MD. OBJECT ORIENTED PROGRAMMER: Pedro Lacy CST, SA-C. ANESTHESIA: Conscious sedation. COMPLICATIONS: None. FINDINGS: Severe osteoarthritis of the hips. INDICATION: Mr. Yang has a long history of severe hip pain that has been getting progressively worse. Because of his ongoing pain, his age and his medical status, he felt that he wanted to continue to try conservative measures. After discussing the risks, benefits and alternatives to that, the patient has given informed consent for that. PROCEDURE: The patient was brought to the Operating Room and placed in supine position. Conscious sedation was administered and the leg was flexed, abducted and externally rotated. The groin was prepped and fluoroscopic imaging was used to confirm needle placement into the hip joint through a medial portal. Once placement had been confirmed, a combination of lidocaine and Depo-Medrol were injected into the joint. After injection, the needle was withdrawn. Pressure was held on the injection site. A sterile band-aid was placed. Attention was then focused on the contralateral side and the procedure was repeated under sterile conditions. The patient was then taken back to the Day Surgery Unit. POSTOPERATIVE PLAN: The patient will be weight-bearing as tolerated on postoperative day 0. #[id number] MTDD
== END 2018-10-10 14:11 | disposition home or self-care (01) ==
LOC: AMB 05:39
PROVIDERS: ATTEND Orthopaedic Surgery
DX: M16.0 Bilateral primary osteoarthritis of hip (principal); N18.9 Chronic kidney disease, unspecified; I48.91 Unspecified atrial fibrillation; Z88.8 Allergy status to other drugs, medicaments and biological substances; Z79.01 Long term (current) use of anticoagulants; Z79.899 Other long term (current) drug therapy
CPT/HCPCS: 01200; 20610; 76000; 93005; J1030; J2250; J3490; J7120

== ENCOUNTER → 2018-10-20 | Outpatient (CLI) | payer MEDICARE | LOC: BFHH 12:30 | PROVIDERS: ATTEND Family Medicine | DX: I12.0 Hypertensive chronic kidney disease with stage 5 chronic kidney disease or end stage renal disease (principal); N18.9 Chronic kidney disease, unspecified; N18.6 End stage renal disease; I50.9 Heart failure, unspecified ==

== ENCOUNTER → 2018-10-24 | Outpatient (CLI) | payer MEDICARE ==
--- NOTE | 2018-10-24 14:16 | CT ---
EXAM DESCRIPTION: Head CLINICAL HISTORY: HEADACHE COMPARISON: None available TECHNIQUE: Noncontrast head CT was performed with routine protocol. FINDINGS: Normal balderas-white matter differentiation. Ventricles and sulci are prominent consistent with age-related cerebral volume loss. Low density areas in the white matter indicate chronic microvascular ischemic changes. No high density hemorrhage, focal edema or shift of the midline. No sulcal effacement. Normal orbital contents. Basilar cisterns appear clear. Intact calvarium with no fracture or lytic lesion. Normal aeration of tympanic cavities and mastoid air cells. No fluid levels in the paranasal sinuses. Skull base appears intact. Symmetrical internal auditory canals. There is calcification of the intracranial internal carotid arteries. Coronal and sagittal reformatted images confirm the findings. IMPRESSION: No acute intracranial pathologic process. This exam was performed according to our departmental dose-optimization program, which includes automated exposure control, adjustment of the mA and/or kV according to patient size and/or use of iterative reconstruction technique. Total DLP equals 752.48 mGycm. Electronically signed by: Jan Borjas MD 10/24/2018 2:15 PM [facility]
--- NOTE | 2018-10-24 14:23 | CT ---
EXAM DESCRIPTION: Chest w/o Contrast CLINICAL HISTORY: 83 years, Male, INTERSTITAL LUNG DISEASE COMPARISON: Chest x-ray March 19, 2018, CT abdomen and pelvis March 19, 2018 TECHNIQUE: Thin-section noncontrast axial CT images are obtained according to our protocol. Reconstructed MPR images are created and reviewed as well. FINDINGS: Lungs: No consolidating pulmonary infiltrate or groundglass infiltrate. No worrisome pulmonary mass or nodule. Emphysematous changes are seen in the upper lobes with fibrotic changes in the subpleural lower lobes. Lower lobe findings have an appearance consistent with usual interstitial pneumonitis, usually idiopathic but occasionally associated with connective tissue diseases or pneumoconiosis. No asbestos-related pleural disease is seen. No esophageal enlargement or advanced shoulder arthropathy. Mediastinum: Lymph nodes are normal in size. Normal vascular contours. Heart size is normal with no pericardial effusion. There is moderate coronary calcification. Chest wall/axilla: No mass or adenopathy. Lower neck/supraclavicular: No mass or adenopathy. Upper abdomen: Large renal cysts are present bilaterally. Otherwise unremarkable upper abdominal viscera. Coronal and sagittal reformatted images confirm the findings. IMPRESSION: Emphysematous changes in lungs bilaterally. Moderate bilateral lower lobe subpleural pulmonary fibrosis. Coronary arterial calcification. This exam was performed according to our departmental dose-optimization program, which includes automated exposure control, adjustment of the mA and/or kV according to patient size and/or use of iterative reconstruction technique. Total DLP equals 384.92 mGycm. Electronically signed by: Jan Borjas MD 10/24/2018 2:21 PM GROUND TRANSPORTATION OPERATOR
== END ==
LOC: CT 13:28
PROVIDERS: ATTEND Internal Medicine Interventional Cardiology
DX: R51 Headache (principal); J84.9 Interstitial pulmonary disease, unspecified; I25.10 Atherosclerotic heart disease of native coronary artery without angina pectoris

== ENCOUNTER → 2018-10-30 | Outpatient (CLI) | payer MEDICARE | LOC: GMAL 12:12 | PROVIDERS: ATTEND Family Medicine | DX: D63.1 Anemia in chronic kidney disease (principal); N18.9 Chronic kidney disease, unspecified ==

== ENCOUNTER → 2018-11-27 | Outpatient (CLI) | payer MEDICARE | LOC: BFHH 10:34 | PROVIDERS: ATTEND Family Medicine | DX: N18.6 End stage renal disease (principal); D63.1 Anemia in chronic kidney disease ==

== ENCOUNTER 2018-12-23 11:24 | Inpatient (IN) | payer MEDICARE ==
[2018-12-23] MEDS ORDERED: PIPERACILLIN/TAZOBACTAM 2.25 GM in SODIUM CHLORIDE 0.9% 50ML 50 ML IVPB ONE (12:23)
--- NOTE | 2018-12-23 12:31 | ED.PDOC ---
History of Present Illness - General Chief Complaint: Neuro Symptoms/Deficits Stated Complaint: change in mental status Time Seen by Provider: 12/23/18 11:30 Source: patient, RN notes reviewed, family, EMS Exam Limitations: clinical condition - History of Present Illness Initial Comments: patient is brought in via EMS for weakening over the past 1-2 days and altered LOC. Patient states he just doesn't feel well and can't quantify more than that. The nurse at the assisted living place stated he had not been eating for a couple of days and just was not himself. She states that his normal level of consciousness is fairly active and he is able to walk and interact with people normally. His family states he's had emesis for the past 24 hours and has not been eating well for a couple of days. He seems a little confused and not quite himself. He denies any fever, chills, chest pain, cough or cold symptoms. He has no shortness of breath above his chronic level. Patient does have interstitial pulmonary disease and has been given 6-12 months to live from pulmonology. Family is currently investigating hospice care and would like to get him started on that but he does want full resuscitation efforts if that becomes necessary. Patient states he did have a normal bowel movement but can't remember if it was today or yesterday a days had no diarrhea Timing/Duration: getting worse, other - 1-2 days Severity: severe Improving Factors: nothing Worsening Factors: nothing Associated Symptoms: loss of appetite, malaise, nausea/vomiting Allergies/Adverse Reactions: Allergies Amiodarone Allergy (Verified 12/23/18 11:52) Azithromycin Allergy (Verified 12/23/18 11:52) Cephalexin [From Keflex] Allergy (Verified 12/23/18 11:52) Cephalosporins Allergy (Verified 12/23/18 11:52) Ciprofloxacin [From Cipro] Allergy (Verified 12/23/18 11:52) Clarithromycin [From Biaxin] Allergy (Verified 12/23/18 11:52) Doxycycline [From Vibramycin] Allergy (Verified 12/23/18 11:52) Fenofibrate [From Tricor] Allergy (Verified 12/23/18 11:52) Levofloxacin Allergy (Verified 12/23/18 11:52) Metronidazole [From Flagyl] Allergy (Verified 12/23/18 11:52) Omeprazole [From Prilosec] Allergy (Verified 12/23/18 11:52) Pantoprazole [From Protonix] Allergy (Verified 12/23/18 11:52) Promethazine Allergy (Verified 12/23/18 11:52) Sulfa Antibiotics Allergy (Verified 12/23/18 11:52) Sulfamethoxazole w/Trimethoprim [From Bactrim] Allergy (Verified 12/23/18 11:52) Home Medications: Ambulatory Orders Famotidine [Pepcid] 20 mg PO DAILY 12/30/17 Liothyronine Sodium 25 mcg PO DAILY 12/30/17 Methylcobalamin [B-12] 1,000 mcg PO DAILY 12/30/17 guaiFENesin ER TAB [Mucinex Tab] 600 mg PO BID 10 Days #20 tab 03/21/18 Apixaban [Eliquis] 2.5 mg PO DAILY 10/03/18 Colchicine 0.3 mg PO ONCE 10/03/18 Furosemide [Lasix] 20 mg PO DAILY 10/03/18 Megestrol Acetate 40 mg PO DAILY 10/03/18 Tylenol W/ CODEINE #3 1 tablet PO PRN PRN 10/03/18 Review of Systems - Review of Systems Constitutional: States: malaise, weakness EENTM: States: no symptoms reported. Denies: eye pain, ear pain, nose con gestion, throat pain Respiratory: States: no symptoms reported, short of breath - chronic on . Denies: cough Cardiology: States: no symptoms reported. Denies: chest pain, edema, palpitations Gastrointestinal/Abdominal: States: nausea, vomiting. Denies: abdominal pain, constipation, diarrhea Genitourinary: States: no symptoms reported. Denies: dysuria, frequency, hematuria Past Medical History (General) - Patient Medical History Hx Seizures: No Hx Stroke: No Hx Dementia: No Hx Asthma: No Hx of COPD: No Hx Cardiac Disorders: Yes - A-Fib Hx Congestive Heart Failure: No Hx Pacemaker: No Hx Hypertension: No Hx Thyroid Disease: Yes Hx Diabetes: No Hx Gastroesophageal Reflux: Yes - Hx peptic ulcer Hx Renal Disease: Yes - Kidney failure Hx Cancer: Yes - Prostate Hx of HIV: No Hx Hepatitis C: No Hx MRSA: No - Vaccination History Hx Tetanus, Diphtheria Vaccination: No Hx Influenza Vaccination: No - unknown Hx Pneumococcal Vaccination: No - unknown - Social History Hx Tobacco Use: Yes Hx Chewing Tobacco Use: No Hx Alcohol Use: No Hx Substance Use: No Hx Substance Use Treatment: No Hx Depression: No Hx Physical Abuse: No Hx Emotional Abuse: No Hx Suspected Abuse: No - Activities of Daily Living Custodial/Assisted Living (if applicable):: [facility] - Female History Patient : No Family Medical History - Family History Father Name: Christopher Yang Age (years): 80 Living Status: Age at (years of age): 80 Cause of : Bladder cancer. Hx Family Cancer: Yes - bladder cancer Mother Family History: No Known Name: Dennis Yang Age (years): 88 Living Status: Age at (years of age): 88 Cause of : House fire Hx Family Asthma: No Hx Family Congestive Heart Failure: No Hx Family Hypertension: No Hx Family Stroke: No Hx Cardiac Disease: No Hx Family Diabetes: No Hx Family Cancer: Yes Physical Exam - Physical Exam General Appearance: Frail, No apparent distress Eye Exam: bilateral normal Ears, Nose, Throat: normal ENT inspection, normal pharynx Neck: non-tender, full range of motion, supple, normal inspection Respiratory: chest non-tender, lungs clear, normal breath sounds, no respiratory distress Cardiovascular/Chest: normal peripheral pulses, regular rate, rhythm, no edema, no gallop, no murmur Gastrointestinal/Abdominal: normal bowel sounds, non tender, soft Back Exam: normal inspection Neurologic: no motor/sensory deficits, alert, oriented x 3 Progress - Progress Progress: discussed at length with family patient's multiple antibiotic allergies. Patient states he can take penicillins and nobody in the family can remember him having a problem with them in the past. At this time we will start Zosyn based on critical elevation of white blood cell count of 25 wall were awaiting the rest of our tests. 12/23/18 12:33 12/23/18 13:46 discussed with family elevation of WBC without definite source of infection. IV Zosyn started and patient will be evaluated for admission by Dr. Beth. - Results/Orders Results/Orders: abdomen: no evidence of bowel obstruction chest xray: no acute cardiopulmonary process 12/23/18 12:00 EKG STAT 12/23/18 12:04 B-TYPE NATRIURETIC PEPTIDE/BNP Stat CARDIAC ENZYME GROUP Stat COMPLETE METABOLIC PROFILE Stat 12/23/18 12:39 Catheter:[place] QSHIFT 12/23/18 13:09 BLOOD CULTURE Stat 12/23/18 13:37 BOLUS Sodium Chloride 0.9% 500Ml [NS 500ml] 500 ml IVS ONCE Laboratory Results WBC 20.4 K/mm3 (4.8-10.8) H* 12/23/18 11:52 RBC 3.85 M/mm3 (4.70-6.10) L 12/23/18 11:52 Hgb 11.7 gm/dL (14.0-18.0) L 12/23/18 11:52 Hct 36.5 % (42.0-52.0) L 12/23/18 11:52 MCV 94.8 fl (80.0-94.0) H 12/23/18 11:52 MCH 30.3 pg (27.0-31.0) 12/23/18 11:52 MCHC 32.1 g/dL (33.0-37.0) L 12/23/18 11:52 RDW 12.8 % (11.5-14.5) 12/23/18 11:52 Plt Count 281 K/mm3 (130-400) 12/23/18 11:52 MPV 7.6 fl (7.40-10.4) 12/23/18 11:52 Absolute Neuts (auto) Not Reportable 12/23/18 11:52 Absolute Lymphs (auto) Not Reportable 12/23/18 11:52 Absolute Monos (auto) Not Reportable 12/23/18 11:52 Absolute Eos (auto) Not Reportable 12/23/18 11:52 Neutrophils % Not Reportable 12/23/18 11:52 Neutrophils % (Manual) 84.0 % (42.0-78.0) H 12/23/18 11:52 Lymphocytes % Not Reportable 12/23/18 11:52 Lymphocytes % (Manual) 6.0 % 12/23/18 11:52 Monocytes % Not Reportable 12/23/18 11:52 Monocytes % (Manual) Not Reportable 12/23/18 11:52 Eosinophils % Not Reportable 12/23/18 11:52 Basophils % Not Reportable 12/23/18 11:52 Band Neutrophils 2.0 % (0-2) 12/23/18 11:52 Platelet Estimate Normal (NORMAL) 12/23/18 11:52 Sodium 139 mmol/L (135-145) 12/23/18 12:04 Potassium 4.2 mmol/L (3.6-5.0) 12/23/18 12:04 Chloride 111 mmol/L (101-111) 12/23/18 12:04 Carbon Dioxide 11 mmol/L (21-31) L* 12/23/18 12:04 Anion Gap 21.2 (12-18) H 12/23/18 12:04 BUN 91 mg/dL (7-18) H 12/23/18 12:04 Creatinine 6.27 mg/dL (0.6-1.3) H* 12/23/18 12:04 BUN/Creatinine Ratio 14.5 (10-20) 12/23/18 12:04 Random Glucose 109 mg/dL (70-105) H 12/23/18 12:04 Serum Osmolality 306.1 mOsm/L (275-295) H 12/23/18 12:04 Lactic Acid 1.5 mmol/L (0.5-2.2) 12/23/18 13:09 Calcium 8.4 mg/dL (8.4-10.2) 12/23/18 12:04 Total Bilirubin 0.8 mg/dL (0.2-1.0) 12/23/18 12:04 AST 22 IU/L (10-42) 12/23/18 12:04 ALT 14 IU/L (10-60) 12/23/18 12:04 Alkaline Phosphatase 102 IU/L (42-121) 12/23/18 12:04 Creatine Kinase 311 IU/L (38-174) H* 12/23/18 12:04 B-Natriuretic Peptide 431.0 pg/ml (0-100) H* 12/23/18 12:04 Serum Total Protein 6.6 gm/dL (6.4-8.2) 12/23/18 12:04 Albumin 3.3 g/dl (3.2-5.5) 12/23/18 12:04 Globulin 3.3 gm/dL (2.3-3.5) 12/23/18 12:04 Albumin/Globulin Ratio 1.0 (1.1-1.9) L 12/23/18 12:04 Urine Color Yellow (Yellow) 12/23/18 12:40 Urine Appearance Sl cloudy (Clear) 12/23/18 12:40 Urine pH 5.0 (4.5-7.8) 12/23/18 12:40 Ur Specific [place] 1.020 (1.005-1.030) 12/23/18 12:40 Urine Protein Negative mg/dL 12/23/18 12:40 Urine Glucose (UA) Negative mg/dL (Negative) 12/23/18 12:40 Urine Ketones Negative mg/dL (NEGATIVE) 12/23/18 12:40 Urine Blood Trace-lysed (Negative) H 12/23/18 12:40 Urine Nitrite Negative 12/23/18 12:40 Urine Bilirubin Small (NEGATIVE) H 12/23/18 12:40 Urine Urobilinogen 0.2 mg/dL (0.2-1.0) 12/23/18 12:40 Ur Leukocyte Esterase Negative (Negative) 12/23/18 12:40 Urine RBC 1-3 /hpf 12/23/18 12:40 Urine WBC 1-3 /hpf 12/23/18 12:40 Ur Epithelial Cells 0-1 /hpf 12/23/18 12:40 Urine Bacteria 1+ 12/23/18 12:40 influ A/B negative - EKG/XRAY/CT EKG: Sinus, nonspecific ST T wave Chg Comments: prolonged QT HR 87 Departure - Departure Clinical Impression: Interstitial lung disease Leukocytosis Qualifiers: Leukocytosis type: unspecified Qualified Code(s): D72.829 - Elevated white blood cell count, unspecified Vomiting Qualifiers: Vomiting type: unspecified Vomiting Intractability: non-intractable Nausea presence: with nausea Qualified Code(s): R11.2 - Nausea with vomiting, unspecified Chronic renal failure Qualifiers: Chronic kidney disease stage: unspecified stage Qualified Code(s): N18.9 - Chronic kidney disease, unspecified Disposition: Admit Patient Condition: Fair Departure Forms: ED Discharge - Pt. Copy, Patient Portal Self Enrollment Referrals: Wesly Wells III, MD [Primary Care Provider] - 1-2 Weeks Home Medications: Ambulatory Orders Famotidine [Pepcid] 20 mg PO DAILY 12/30/17 Liothyronine Sodium 25 mcg PO DAILY 12/30/17 Methylcobalamin [B-12] 1,000 mcg PO DAILY 12/30/17 guaiFENesin ER TAB [Mucinex Tab] 600 mg PO BID 10 Days #20 tab 03/21/18 Apixaban [Eliquis] 2.5 mg PO DAILY 10/03/18 Colchicine 0.3 mg PO ONCE 10/03/18 Furosemide [Lasix] 20 mg PO DAILY 10/03/18 Megestrol Acetate 40 mg PO DAILY 10/03/18 Tylenol W/ CODEINE #3 1 tablet PO PRN PRN 10/03/18 Decision To Admit - Decistion To Admit Decision to Admit Reason: Admit from ER Decision to Admit Date: 12/23/18 Decision to Admit Time: 13:49
[2018-12-23] MEDS ORDERED: SODIUM CHLORIDE 0.9% 50ML 50 ML ONE ×2 (12:48→19:41)
[2018-12-23] MEDS ORDERED: PIPERACILLIN/TAZOBACTAM 3.375 GM VIAL IVPB ONE (12:48)
--- NOTE | 2018-12-23 12:48 | RAD ---
PROCEDURE: XR Chest, 1 View CLINICAL INDICATION: The patient is 83 years old and is Male; altered LOC TECHNIQUE: Frontal view of the chest. COMPARISON: Prior study from 03/19/2018 FINDINGS: LUNGS: The lungs are clear and free of focal consolidation. Pulmonary vascularity is normal. PLEURAL SPACE: There is NO pneumothorax. There are no pleural effusions noted. HEART: The heart size is normal. MEDIASTINUM: The mediastinal contour is unremarkable. BONES/JOINTS: There are degenerative changes of the spine identified. Hardware overlies the medial RIGHT clavicle, possibly external to the patient. No acute abnormality. SOFT TISSUES: Surgical clips at the GE junction are noted. VASCULATURE: The aortic knob is calcified. IMPRESSION: 1. The lungs are clear and free of focal consolidation. 2. No significant interval change when compared to the prior study from 03/19/2018. Electronically signed by: Shahab Valero MD 12/23/2018 12:45 PM [facility] [employer]
--- NOTE | 2018-12-23 12:50 | RAD ---
PROCEDURE: XR Abdomen, 1 View CLINICAL INDICATION: The patient is 83 years old and is Male; emesis, altered LOC TECHNIQUE: Frontal supine view of the abdomen/pelvis. COMPARISON: Prior study from 02/18/[address] from 03/19/2018. FINDINGS: GASTROINTESTINAL TRACT: Unremarkable. No disproportionate bowel dilation to suggest obstruction. BONES/JOINTS: There are degenerative changes of the spine identified. There are severe degenerative changes of the hips. SOFT TISSUES: Surgical clips are again noted throughout the pelvis. IMPRESSION: No evidence of bowel obstruction. Electronically signed by: Shahab Valero MD 12/23/2018 12:48 PM [facility]
[2018-12-23] MEDS ORDERED: SODIUM CHLORIDE 0.9% 500ML 500 ML IVS ONE (13:37)
[2018-12-23] MEDS ORDERED: SODIUM CHLORIDE 0.9% (FLUSH) 10 ML SYG IV PRN (14:52)
--- NOTE | 2018-12-23 16:03 | PCM.H&P ---
History of Present Illnes - History of Present Illness Reason for Visit: Vomiting, Altered mental status History of Present Illness: Patient with long hx of many chronic severe conditions (ESRD, ILD, Cardiac) brought to ED by family after having several days of not acting himself and seeming depressed/anxious. Does not have fever/chills. Has normal BMs. But has been vomiting for a couple days per the family. No other complaints by the patient they endorse. Upon questioning with the family, He is in an assisted living facility, memory unit, with his . She apparently has had a couple occurrences of decline and requiring removal to a hopsital and changing rooms to be more observed. He apparently is not taking it well. It has happened in the past apparently. THe family endorse that they have talked about getting him and his involved in Hospice. In the past it never really worked out and they haven't brought it up. Now they would like to discuss options and how it actually works. - Past Medical History Cardiac: AFIB Pulmonary: Pneumonia - Intersitital lung disease with hx of pnuemonia [employer]: Dementia Renal/: Chronic renal failure - Past Surgical History Past Surgical History: Other - Gastric Surgery, Multiple bone ORIF of LE, TURP - Past Family History Family History: Cancer - Brothers/Dad - Past Social History Smoke: 1 pack per day - for 40 years, Quit - 30 years ago Alcohol: None Drugs: None Lives: Other - assisted living Review of Systems - Review of Systems Constitutional: States: Weakness. Denies: Fever, Chills ENT: Denies: Nose Congestion, Mouth Swelling, Throat Pain Respiratory: States: Shortness of Breath. Denies: Cough, Hemoptysis, Pleuritic Pain Cardiovascular: Denies: Chest Pain, Palpitations, Edema Gastrointestinal: States: Vomiting. Denies: Nausea, Abdominal Pain Genitourinary: Denies: Dysuria Musculoskeletal: Denies: Neck Pain, Back Pain Skin: Denies: Rash, Lesions Neurological: States: Weakness, Confusion. Denies: Change in Speech - Medications/Allergies Allergies/Adverse Reactions: Allergies Allergy/AdvReac Type Severity Reaction Status Date / Time Amiodarone Allergy Verified 12/23/18 11:52 Azithromycin Allergy Verified 12/23/18 11:52 Cephalexin [From Keflex] Allergy Verified 12/23/18 11:52 Cephalosporins Allergy Verified 12/23/18 11:52 Ciprofloxacin [From Cipro] Allergy Verified 12/23/18 11:52 Clarithromycin [From Biaxin] Allergy Verified 12/23/18 11:52 Doxycycline [From Vibramycin] Allergy Verified 12/23/18 11:52 Fenofibrate [From Tricor] Allergy Verified 12/23/18 11:52 Levofloxacin Allergy Verified 12/23/18 11:52 Metronidazole [From Flagyl] Allergy Verified 12/23/18 11:52 Omeprazole [From Prilosec] Allergy Verified 12/23/18 11:52 Pantoprazole [From Protonix] Allergy Verified 12/23/18 11:52 Promethazine Allergy Verified 12/23/18 11:52 Sulfa Antibiotics Allergy Verified 12/23/18 11:52 Sulfamethoxazole Allergy Verified 12/23/18 11:52 w/Trimethoprim [From Bactrim] Medications: Current Medications Eliquis PO daily Colchicine PO Once Pepcid Daily Lasix Daily Liothyronine Daily Megace daily Vit B12 Tyl #3 Exam - Exam Vital Signs: Vital Signs (72 hours) 12/23/18 11:28 Temperature 98.2 F Pulse Rate [ 81 pulse ox] Respiratory 20 Rate Blood Pressure 130/82 [Left Arm] O2 Sat by Pulse 97 Oximetry General: Alert, Cooperative, Other - disoriented to place/time HEENT: PERRLA, EOMI Lungs: Clear to auscultation, Normal air movement Cardiovascular: Regular rate, No murmurs Abdomen: Normal bowel sounds, Soft, No tenderness Extremities: No clubbing, No cyanosis, No edema Skin: No rashes, No breakdown Neurological: Sensation intact, Other - Unable to walk, strength 4/5 bilat UE, strength 3/5 bilat LE (baseline) Assessment/Plan - Assessment/Plan Assessment: Labs: WBC 20.4, Hgb 11.7, Potassium 4.2, Cr 6.2, Urinalysis w/ +1 bacteria and no Leukocytes/Nitrites; LA 1.5, Trop Neg, BNP mildly elevated Imaging: CXR negative for consolidation, KUB negative for SBO 1. Leukocytosis of unknown source 2. Encephalopathy 3. Chronic Interstitial lung disease 4. Chronic Atrial fibrillation 5. Chronic renal failure Plan: We are admitting to in observation to address the leukocytosis of unknown source with Zakia (given his extensive allergy list). No obvious infection noted yet, CXR was clear as was KUB. Possbile UTI, covered with aforementioned. Will consult SS for Hospice discussions and potential discharge in the next day or so once improved. WIll restart home meds once verified. Cont IVF if necessary. WIll send Urine for Culture. Likely can remove pozo once patient improves or is able to move to bed granger/bedside in the next day or so.
[2018-12-23] MEDS: IV SET AND CAP CHANGE INJ INJ SCH (18:15)
[2018-12-23] MEDS ORDERED: PIPERACILLIN/TAZOBACTAM 2.25 GM VIAL IVPB ONE (19:41)
[2018-12-23] MEDS: SODIUM CHLORIDE 0.9% (FLUSH) 10 ML SYG IV SCH (20:58)
[2018-12-23] MEDS: PIPERACILLIN/TAZOBACTAM 2.25 GM in SODIUM CHLORIDE 0.9% 50ML 50 ML IVPB SCH (20:58)
[2018-12-24] MEDS ORDERED: PIPERACILLIN/TAZOBACTAM 2.25 GM VIAL IVPB ONE ×3 (04:21→21:14)
[2018-12-24] MEDS ORDERED: SODIUM CHLORIDE 0.9% 50ML 50 ML ONE ×3 (04:21→21:14)
[2018-12-24] MEDS: PIPERACILLIN/TAZOBACTAM 2.25 GM in SODIUM CHLORIDE 0.9% 50ML 50 ML IVPB SCH ×2 (04:51→12:43)
[2018-12-24] MEDS: SODIUM CHLORIDE 0.9% (FLUSH) 10 ML SYG IV SCH (09:36)
[2018-12-24] MEDS: DEX 5% W/NACL 0.45% 1000ML 1,000 ML IVS PRN ×2 (12:44→23:12)
[2018-12-24] MEDS: ALPRAZolam 0.25 MG TAB PO SCH (21:30)
[2018-12-24] MEDS: APIXABAN 2.5 MG TAB PO SCH (21:30)
--- NOTE | 2018-12-24 22:00 | PN ---
DATE: 12/24/18 SUPERVISING PHYSICIAN: Randell Beth M.D. SUBJECTIVE: The patient is resting comfortably. His family is at the bedside. They note that he is still not at his normal mental status. I did talk to them at length about staying in Acute Care for several days to see if his kidney function will improve and consultation with a hospice care of their choice. The family is in agreement that the best plan of care is just that and will talk to [facility] as that is one they have chosen to go with. OBJECTIVE: VITAL SIGNS: Temperature 97.8, pulse 79, blood pressure 103/65, respirations 20, satting 100% on room air at rest. I's and O's show a negative balance of 1550 with 250 in, 1800 out. Weight 59.5 kg. GENERAL: The patient is resting comfortably with family at bedside. Appears to be in no acute distress. He is alert. CHEST: Lung sounds were clear to auscultation. HEART: Regular rate and rhythm. ABDOMEN: Soft, non-tender. Positive bowel sounds. EXTREMITIES: No clubbing, cyanosis or edema. NEUROLOGIC: He is alert to himself and family members, and location. LABORATORY: White count is down to 11,700, hemoglobin 10.4, hematocrit 31.9, platelet count 222,000. Differential does show a left shift today with no bands. Chemistries show an elevated chloride at 113, potassium and sodium are normal. Carbon dioxide 12, BUN 92, creatinine is down to 5.85, glucose 89, serum osmolality 305, calcium 7.9. MICROBIOLOGY: Blood cultures remain negative at 24 hours. RADIOLOGY: No additional radiographic studies today. ASSESSMENT: 1. Leukocytosis, uncertain etiology, showing improvement with treatment with IV fluids and antibiotics possibly a stress-related event. 2. Metabolic encephalopathy improving with fluids. 3. Acute on chronic renal failure with a metabolic acidosis showing slight improvement with fluids. 4. Dehydration contributing to a prerenal azotemic state and worsening renal function requiring ongoing fluids. 5. Chronic interstitial lung disease without any signs of infection. 6. Chronic atrial fibrillation with controlled ventricular rate and on Eliquis. PLAN: Will continue plan of care at this point but change the patient to inpatient status as again after discussing with the family, but we are going to try more aggressive management with fluids and continued antibiotics, and follow his labs for the next several days. I did talk to Dr. Lopes. He felt like the patient was probably just really dehydrated. Unfortunately with the patient's antibiotic being Zosyn, as that is the only choice of antibiotics at this point, it may be a little difficult to improve his renal function at any great rate. In that effect, will increase his Zosyn to every 12 hours in efforts to help worsening renal function. Should he show non obvious signs of infection, certainly will need to stop his antibiotics but warrants at least another 24 hours. Again, family is on board with treating fairly aggressively for the next 48 to 72 hours and if he does improve, send him home on hospice care. I have requested a [facility] consultation with the family. Until we can transition the patient to outpatient management, will continue to monitor and treat as needed. #[id number] [facility]
[2018-12-25] MEDS ORDERED: PIPERACILLIN/TAZOBACTAM 2.25 GM in SODIUM CHLORIDE 0.9% 50ML 50 ML IVPB SCH (01:00)
[2018-12-25] MEDS ORDERED: SODIUM CHLORIDE 0.9% 50ML 50 ML ONE (08:30)
[2018-12-25] MEDS ORDERED: MEROPENEM 1 GM VIAL IVPB ONE (08:30)
[2018-12-25] MEDS: KCL 40MEQ/NS 1,000 ML IVS PRN ×3 (08:34→22:47)
[2018-12-25] MEDS: APIXABAN 2.5 MG TAB PO SCH ×2 (08:35→20:23)
[2018-12-25] MEDS: FAMOTIDINE 20 MG TAB PO SCH (08:35)
[2018-12-25] MEDS: LIOTHYRONINE SODIUM 25 MCG PO SCH (08:41)
[2018-12-25] MEDS ORDERED: MEROPENEM 1 GM in SODIUM CHL 0.9% 50ML MIN-BAG+ 50 ML IVPB SCH (09:00)
[2018-12-25] MEDS ORDERED: BREO ELLIPTA INH SCH (09:00)
[2018-12-25] MEDS ORDERED: METHYLCOBALAMIN 1000 MCG PO SCH (09:00)
[2018-12-25] MEDS ORDERED: NON-FORMULARY MEDICATION 1 EA MIS (Tiotropium Bromide Monohydrate [Spiriva Handihaler] 1 P IN SCH (09:00)
[2018-12-25] MEDS: MEROPENEM 1 GM in SODIUM CHL 0.9% 50ML MIN-BAG+ 50 ML IVPB SCH (10:28)
[2018-12-25] MEDS: CYANOCOBALAMIN 1,000 MCG TAB PO SCH (13:40)
--- NOTE | 2018-12-25 15:39 | PN ---
SUPERVISING PHYSICIAN: Barbara Barbour MD DATE: 12/25/18 SUBJECTIVE: The patient is resting comfortably. His son is at the bedside. He notes he is feeling okay, he is just tired. He has had no further complaints. Discussion is now to take the patient home once he is stable to reside at home with hospice care and 24 hour sitters. OBJECTIVE: VITAL SIGNS: He remains afebrile. Temperature 97.7. Pulse 76. Blood pressure 90/48. Respirations 16. Saturation 97% on nasal cannula at 2 liters. I&Os show negative balance of 280 with 120 in, 400 out. Weight 52.7 kg. GENERAL: The patient appears ill and tired. He appears to be in no acute distress. He is alert. CHEST: Lung sounds remain clear to auscultation, just diminished towards the bases. HEART: Regular rate and rhythm. ABDOMEN: Soft, nontender. Positive bowel sounds. EXTREMITIES: No clubbing, cyanosis or edema. NEUROLOGIC: He is alert and oriented to location, family and friends. LABORATORY: White count now is normalized to 8,400, hemoglobin down to 8.9, hematocrit 27.0, platelet count 180,000. Differential shows an improvement in left shift. Chemistries show a sodium 133, potassium down to 2.8, anion gap 11.8, BUN 83, creatinine down to 4.87. Serum osmolality 292 compared to 305. MICROBIOLOGY: Blood cultures remain negative at 48 hours. RADIOLOGY: No additional radiographic studies. ASSESSMENT: 1. Leukocytosis, uncertain etiology, returning to baseline after initiation of antibiotic therapy, felt to be related to stress-related event. 2. Metabolic encephalopathy, improving with fluids. 3. Acute on chronic renal failure with a metabolic acidosis, showing improvement with fluids. 4. Dehydration contributing to a prerenal azotemic state and worsening renal function, resolving with fluids. 5. Chronic interstitial lung disease without any signs of infection. 6. Chronic atrial fibrillation with controlled ventricular rate and on Eliquis. PLAN: The patient continues to show improvement although he is maintaining very low normal blood pressure. Again, discussion with the family hoping to discharge in the next 24 to 48 hours and the plan will be discharge home to hospice care with 24 hour sitters. We will continue with antibiotics, but I will switch him to meropenem today in efforts to get him off Zosyn and see if we can get his creatinine to return more to baseline levels. As he progresses and shows no evidence of infection, we certainly can deescalate antibiotics as necessary. Until he can transition to outpatient management, we will continue to monitor and treat as needed. #[id number] [facility]
[2018-12-25] MEDS: TIOTROPIUM INHALER INH SCH (16:58)
[2018-12-25] MEDS: BREO ELLIPTA INH SCH (16:58)
[2018-12-25] MEDS: ALPRAZolam 0.25 MG TAB PO SCH (20:23)
[2018-12-26] MEDS ORDERED: SODIUM CHL 0.9% 50ML MIN-BAG+ 50 ML IVPB ONE (07:51)
[2018-12-26] MEDS ORDERED: MEROPENEM 1 GM VIAL IVPB ONE (07:51)
[2018-12-26] MEDS: TIOTROPIUM INHALER INH SCH (07:58)
[2018-12-26] MEDS: BREO ELLIPTA INH SCH (07:58)
[2018-12-26] MEDS ORDERED: DEX 5% W/NACL 0.9% 1000ML 0 ML IVS ONE (08:39)
[2018-12-26] MEDS: APIXABAN 2.5 MG TAB PO SCH ×2 (08:46→20:28)
[2018-12-26] MEDS: MEROPENEM 1 GM in SODIUM CHL 0.9% 50ML MIN-BAG+ 50 ML IVPB SCH (08:46)
[2018-12-26] MEDS: DEXTROSE 5% 1000ML 1,000 ML IVS PRN ×2 (08:46→22:32)
[2018-12-26] MEDS: CYANOCOBALAMIN 1,000 MCG TAB PO SCH ×2 (08:46→14:26)
[2018-12-26] MEDS: FAMOTIDINE 20 MG TAB PO SCH (08:46)
[2018-12-26] MEDS: BIFIDOBACTERIUM INFANTIS 4 MG CAP PO SCH (10:00)
--- NOTE | 2018-12-26 13:42 | PN ---
SUPERVISING PHYSICIAN: Barbara Barbour MD DATE: 12/26/18 SUBJECTIVE: The patient is doing much better today. He has actually been up with physical therapy in the room. His mentation seems to be improving. His endurance is certainly improving. I discussed we will probably be able to discharge tomorrow as soon as we continue with fluid management as he is still slightly dehydrated and needs to have some free water to further correct his electrolyte imbalance. OBJECTIVE: VITAL SIGNS: Temperature 97.2. Pulse 87. Blood pressure 125/77. Respirations 16. Saturation 97% on room air. I&Os show positive balance of 1195 with 1370 in, 1875 out. Weight 62.7 kg. GENERAL: The patient is alert, appears to be in no acute distress. He is actually working with physical therapy. CHEST: Lung sounds remain clear to auscultation. HEART: Regular rate and rhythm. ABDOMEN: Soft, nontender. Positive bowel sounds. EXTREMITIES: No clubbing, cyanosis or edema. NEUROLOGIC: He is alert and oriented x3 today. LABORATORY: Hemoglobin stable at 10.1, hematocrit 31.3. Chemistries show an elevated chloride at 121 with sodium 141, carbon dioxide 13, BUN 68, creatinine 3.81, which is significantly improved from admission of 6.27. Serum osmolality 299, calcium 7.6, corrected from a albumin of approximately 8.0. MICROBIOLOGY: Blood cultures remain negative at 48 hours. RADIOLOGY: No additional radiographic studies today. ASSESSMENT: 1. Leukocytosis, uncertain etiology, now normalized to baseline levels after initiation of fluids, likely related to some underlying dehydration and stress- related event with some demargination with no current signs of infection. 2. Metabolic encephalopathy, improved to normal mental status after fluids. 3. Acute on chronic renal failure with a continued hyperkalemic metabolic acidosis, showing slow improvement with fluids, continuing to require further management. 4. Dehydration contributing to a prerenal azotemic state and his metabolic acidosis as well as worsening renal function, but showing some improvement with fluid management. 5. Chronic interstitial lung disease without any signs of infection. 6. Chronic atrial fibrillation with controlled ventricular rate and on Eliquis. PLAN: The patient continues to show good improvement. He is certainly deficient on free water given his elevated chloride. Therefore, we will change his IV fluids to D5W and will run at 80 an hour for the next 12 hours and reassess his electrolytes later this afternoon. If he continues to progress, we will hopefully be able to transition him to outpatient management with hospice care and around the clock sitters. Given that there is no obvious sign of infection, but his frailty and underlying comorbidities, we will continue another 24 hours with meropenem and reassess tomorrow. Until he is able to transition to outpatient management, we will continue to monitor and treat as needed. #[id number] [facility]
[2018-12-26] MEDS: LIOTHYRONINE SODIUM 25 MCG PO SCH (14:31)
[2018-12-26] MEDS: ESCITALOPRAM 10 MG TAB PO SCH (14:52)
[2018-12-26] MEDS: ALPRAZolam 0.25 MG TAB PO SCH (20:28)
[2018-12-26] MEDS: IV SET AND CAP CHANGE INJ INJ SCH (22:32)
[2018-12-27] MEDS ORDERED: SODIUM CHL 0.9% 50ML MIN-BAG+ 50 ML IVPB ONE (07:22)
[2018-12-27] MEDS ORDERED: MEROPENEM 1 GM VIAL IVPB ONE (07:23)
[2018-12-27] MEDS: ESCITALOPRAM 10 MG TAB PO SCH (08:50)
[2018-12-27] MEDS: MEROPENEM 1 GM in SODIUM CHL 0.9% 50ML MIN-BAG+ 50 ML IVPB SCH (08:50)
[2018-12-27] MEDS: LIOTHYRONINE SODIUM 25 MCG PO SCH (08:51)
[2018-12-27] MEDS: FAMOTIDINE 20 MG TAB PO SCH (08:51)
[2018-12-27] MEDS: BIFIDOBACTERIUM INFANTIS 4 MG CAP PO SCH (08:51)
[2018-12-27] MEDS: APIXABAN 2.5 MG TAB PO SCH ×2 (08:51→21:11)
[2018-12-27] MEDS: CYANOCOBALAMIN 1,000 MCG TAB PO SCH ×2 (08:51)
[2018-12-27] MEDS: TIOTROPIUM INHALER INH SCH (09:09)
[2018-12-27] MEDS: BREO ELLIPTA INH SCH (09:09)
[2018-12-27] MEDS: NON-FORMULARY MEDICATION 1 EA MIS PO SCH ×2 (15:32→21:11)
[2018-12-27] MEDS: DEXTROSE 5% 1000ML 1,000 ML IVS PRN (15:32)
[2018-12-27] MEDS ORDERED: MAGNESIUM SULFATE PREMIX 2GM 50 ML IVPB ONE (19:30)
[2018-12-27] MEDS ORDERED: MAGNESIUM SULFATE PREMIX 2GM 2 GM in PREMIX BAG 1 BAG IVPB ONE (20:00)
[2018-12-27] MEDS: ALPRAZolam 0.25 MG TAB PO SCH (21:11)
[2018-12-27] MEDS: KCL 20MEQ/D5W 1,000 ML IVS PRN (21:42)
--- NOTE | 2018-12-28 08:06 | PN ---
SUPERVISING PHYSICIAN: Barbara Barbour MD DATE: 12/27/18 SUBJECTIVE: The patient is sitting in the bedside chair. Family is in the room. The patient notes he is just tired, but denies any further problems. He has not been eating. He has very limited oral intake, but seems to be close to his baseline levels as far as his mentation although his family is concerned that he gets a little confused in the afternoon and later towards the night. I have discussed this, it is probably more likely a sundowner's situation and they understand this. They are working to get him set up with hospice in anticipation of probably discharging tomorrow if his electrolytes are normalized and they are working to get a hospital bed back at [facility] with sitters. I did mention that I am not sure about the situation as far as going back to [facility] in regards to his current condition, but we will continue to evaluate. OBJECTIVE: VITAL SIGNS: Temperature 98.4. Pulse 83. Blood pressure 115/68. Respirations 18. Saturation 96% on room air at rest. I&Os show positive balance of 815 with 2490 in, 1675 out with slight improvement in his oral intake in the last 24 hours. Weight 63.1 kg. GENERAL: The patient is sitting in the bedside chair, quite tired. He says he did not sleep much through the night, but he is alert and appears to be in no distress. CHEST: Lung sounds remain clear to auscultation. HEART: Slightly irregular rate and rhythm. ABDOMEN: Soft, nontender. Positive bowel sounds. EXTREMITIES: No clubbing, cyanosis or edema. NEUROLOGIC: He is alert and oriented x3. LABORATORY: Chemistries show continued elevated chloride at 121 and a low carbon dioxide of 12 with BUN 52, which is improving, and creatinine down to 2.88 which in reviewing his records, his baseline is around 2.8 to 3. Anion demarcus continues to be low. Albumin 2.1, so probably near normal limits. Magnesium low at 1.6. We will plan to replace that today. Also, looking back at his previous record, it looks like he runs a fairly low CO2 at times. Glucose 115. Osmolality 292, calcium 7.5, but corrects to about 8.2 with a 2.1 albumin level. MICROBIOLOGY: Blood cultures remain negative at 4 days. Again, his influenza swab was negative for A and B. RADIOLOGY: No additional radiographic studies today. ASSESSMENT: 1. Leukocytosis, probably due to dehydration and acute stress-related event with no obvious signs of infection, now back to baseline levels and being stable. 2. Metabolic encephalopathy, secondary to continued metabolic acidosis, improving with continued fluids, back to near baseline mental status. 3. Acute on chronic renal failure with now normal potassium levels with continued metabolic acidosis, showing persistence, needing to be started on sodium bicarb regimen. 4. Dehydration contributing to a prerenal azotemic state and his metabolic acidosis as well as worsening renal function, showing some improvement with fluids. now with the patient receiving D5W. 5. Normocytic/normochromic anemia with no evidence of acute loss, probably secondary to chronic illness and chronic renal failure and acute exacerbation. 6. Chronic interstitial lung disease without any signs of infection or exacerbation. 7. Chronic atrial fibrillation with controlled ventricular rate and on Eliquis. PLAN: I did talk to Dr. Lopes today, quality control specialist, and he felt we should probably start the patient on some sodium bicarb in the form of baking soda 1 teaspoon 3 times a day as this seems to be more tolerable than the tablets. We will continue with D5W at a slow rate of 80 and encourage oral intake. We will recheck another electrolyte later tonight and hopefully see some improvement with anticipation of hopefully being able to discharge tomorrow. Again, we will need to followup with family in regards to the arrangements at either [facility] or home. They were choosing initially to do sitters and now are looking at going back to [facility], both on hospice, but I am not sure as to where we stand with [facility] as that needs to be reevaluated. Given that he is not showing any signs of infection, I will stop his meropenem today and not start any other antibiotics considering he is allergic to essentially every antibiotic that is available. We will closely monitor and hopefully this will remain stable. Again, until he can transition to outpatient management which will hopefully be tomorrow, we will continue to monitor and treat as needed. Once discharged, he will certainly need to followup with Dr. Lopes next week. #[id number] [facility]
[2018-12-28] MEDS: KCL 20MEQ/D5W 1,000 ML IVS PRN (08:11)
[2018-12-28] MEDS: BIFIDOBACTERIUM INFANTIS 4 MG CAP PO SCH (08:17)
[2018-12-28] MEDS: ESCITALOPRAM 10 MG TAB PO SCH (08:18)
[2018-12-28] MEDS: APIXABAN 2.5 MG TAB PO SCH (08:18)
[2018-12-28] MEDS: LIOTHYRONINE SODIUM 25 MCG PO SCH (08:18)
[2018-12-28] MEDS: FAMOTIDINE 20 MG TAB PO SCH (08:19)
[2018-12-28] MEDS: CYANOCOBALAMIN 1,000 MCG TAB PO SCH (08:19)
[2018-12-28] MEDS: NON-FORMULARY MEDICATION 1 EA MIS PO SCH (08:19)
[2018-12-28] MEDS: TIOTROPIUM INHALER INH SCH (08:52)
[2018-12-28] MEDS: BREO ELLIPTA INH SCH (08:52)
[2018-12-28 11:00] VITALS: BP 112/68; TEMP 98.2; O2SAT 98
--- NOTE | 2018-12-28 18:58 | DS ---
SUPERVISING PHYSICIAN: Jose Alberto Barbour M.D. DISCHARGE DIAGNOSIS: 1. Leukocytosis, probably due to dehydration and acute stress-related event with no obvious signs of infection, now back to baseline and stable. 2. Metabolic encephalopathy, secondary to continued metabolic acidosis that has improved. 3. Acute on chronic renal failure. His potassium is now normal. 4. Dehydration contributing to a prerenal azotemic state with metabolic acidosis as well as worsening renal function that is continuing to show improvement with fluids. 5. Normocytic/normochromic anemia with no evidence of acute loss, most likely due to chronic illness as well as chronic renal failure. 6. Chronic interstitial lung disease without any signs of infection or exacerbation. 7. Chronic atrial fibrillation with controlled ventricular rate on Eliquis. HISTORY OF PRESENT ILLNESS: This is an 83 year-old male patient who presented to the Emergency Room by family members. He has a long history of several acute diseases and he had been not acting himself over the past several days. He seemed very depressed and anxious. There was no fever or chills. He has had normal bowel movements but has been vomiting for several days. He lives in an assisted living facility memory unit with his . There have been some changes in their living status in that his had to be moved to an area for closer observation and he was quite upset about that. In the E. R., his vital signs showed temperature 98.2 with heart rate 81, blood pressure 130/82, respiratory rate 20, O2 sat 97% on 2 liters nasal cannula. WBCs were 20,400 with hemoglobin 11.7, hematocrit 36.5. Sodium 141, potassium 4.7, chloride 121, carbon dioxide 13, BUN 68, creatinine 3.81. Serum osmolality 299.9 with calcium 7.6. Urinalysis was basically unremarkable. Blood cultures were drawn. His chest x-ray showed: 1) The lungs are clear and free of focal consolidation with no significant interval change when compared to study from 03/19/18. His abdominal x-ray showed no evidence of bowel obstruction. He was given some fluids in the E. R. He was given Zosyn. Family was considering hospice care for he and his , and they wanted to be contacted by [facility]. The patient was placed in observation in the hospital. HOSPITAL COURSE: It took several days for the patient to reach his baseline mental status. The patient's status was changed to inpatient. Dr. Lopes, environmental restoration planner in [place], was consulted and he felt like he was mostly dehydrated, but he felt we should continue with the Zosyn in spite of making his renal function worse. He was changed to renal dosed Zosyn. The family wanted him treated aggressively for 48 to 72 hours and if he did not improve, they would admit the patient to hospice. He returned to his baseline mental status approximately day 3. His blood pressure was quite low but he was maintaining that without any problem. He was switched from Zosyn to Meropenem. The family planned to discharge him with [facility] but they were unsure if he should go to [facility] with sitters or he should go home, and they were discussing that with the other family members. On day 4, he was doing much better. He had been up with Physical Therapy and his mentation improved. The family decided that he would go to [facility] with sitters and be admitted to [facility]. He was given free water in addition to D5W. At that point the family was waiting for [facility] to set up his equipment in his room at [facility]. Family feels that he is at his baseline mentation, but due to his intermittent confusion, the family felt like he would do better with sitters. Today, he will be discharged in fair condition to [facility] to be admitted to [facility]. LABORATORY: Initially his WBCs were 20,400, they are now normalized at 8.4. His hemoglobin and hematocrit initially were 11.7 and 36.5, and today they have maintained at 10.1 and 31.3. Potassium is slightly low but he received some potassium supplementation today. It was 3.5. Carbon dioxide started at 13 on admission and today is 16. BUN on admission was 68, it improved to 41 today. Creatinine was 3.81 on admission and is now 2.54. Calcium continues to be slightly low at 7.5 to 7.8. At one point he did have a low magnesium and he received supplementation, and it is now 2.5. His final blood culture showed no growth after 5 days. Influenza A and B by PCR were both negative. RADIOLOGY: There were no further radiologic test during his hospital stay. DISCHARGE PLAN: The patient will be discharged to [facility] in fair condition. He will be admitted to [facility] once he gets to [facility]. His [place] catheter was discontinued here in the hospital, but that can be reinserted if necessary. He is to continue on his home medications. I have elected not to send him home on any antibiotic therapy as his blood cultures were negative. I do not want to worsen his renal problems. He is to followup with Dr. Wells in 1 to 2 weeks. He can decide at that time if he needs to be restarted on antibiotic therapy. He is to return to the hospital or call Dr. Wells' office for any problems or complications. DISCHARGE MEDICATIONS: 1. Liothyronine. 2. Methylcobalamin. 3. Famotidine. 4. Eliquis. 5. Megestrol Acetate. 6. Furosemide. 7. Xanax. 8. Colchicine. 9. Breo ellipta. 10. Spiriva. 11. Loperamide. 12. Ondansetron. 13. Docusate sodium. 14. Cyanocobalamin. 15. Acetaminophen with codeine. 16. Lexapro. 17. Haloperidol. 18. Align. #[id number] [facility]
== END 2018-12-28 12:55 | disposition hospice, home (50) | DRG 682 ==
LOC: ER 11:24 → UNDOADMOB 15:20 → MS 15:20 → OBSVTOIN 15:20 → INTOOBSV 15:20 → MS 12-24 12:38 → OBSVTOIN 12-24 12:38
PROVIDERS: ADMIT Family Medicine; ATTEND Nurse Practitioner Acute Care
DX: N17.9 Acute kidney failure, unspecified (principal); G93.41 Metabolic encephalopathy; E87.2 Acidosis; J84.9 Interstitial pulmonary disease, unspecified; E86.0 Dehydration; N18.9 Chronic kidney disease, unspecified; D64.9 Anemia, unspecified; I48.2 Chronic atrial fibrillation; F41.9 Anxiety disorder, unspecified; F32.9 Major depressive disorder, single episode, unspecified; E83.42 Hypomagnesemia; F17.210 Nicotine dependence, cigarettes, uncomplicated; Z88.1 Allergy status to other antibiotic agents; Z88.3 Allergy status to other anti-infective agents; Z88.8 Allergy status to other drugs, medicaments and biological substances; Z88.2 Allergy status to sulfonamides; Z79.02 Long term (current) use of antithrombotics/antiplatelets; Z79.899 Other long term (current) drug therapy

== ENCOUNTER → 2019-02-21 | Outpatient (CLI) | payer MEDICARE | LOC: SOLHO 11:39 | PROVIDERS: ATTEND Family Medicine | DX: D64.9 Anemia, unspecified (principal) ==